=== PATIENT | female | born 1955 | race Hispanic/Latino ===

== ENCOUNTER 2020-07-21 08:17 | Inpatient (IN) | payer MEDICARE, OTHER ==
[2020-07-21] MEDS ORDERED: SODIUM CHLORIDE 0.9% 1000 ML 1,000 ML IV ONE (08:43)
[2020-07-21] MEDS ORDERED: ONDANSETRON 4 MG/2 ML INJ IV ONE (08:44)
[2020-07-21] MEDS ORDERED: MORPHINE 4 MG/1 ML INJ IV ONE (08:44)
--- NOTE | 2020-07-21 08:44 | Emergency Department Report ---
HPI - General Chief Complaint: Abdominal Pain Time Seen by Provider: 07/21/20 08:27 - HPI HPI: This is a 65-year-old female presents to the emergency department with periumbilical abdominal pain related to a hernia. Patient does have a history of this hernia and says that it has been going on intermittently for "a while", but usually she is able to push the hernia back in and has not been able to do so over the past few days. On Monday, 2 days ago, the patient went to [facility] and had a work-up including labs and a CT scan of the abdomen and pelvis with IV contrast. The results show that the patient has a ventral/umbilical hernia that contains both fat and bowel. Apparently they attempted to reduce the hernia unsuccessfully. However, a general surgeon was contacted at that time who said that she did not feel that the patient should be operated on for those findings and the patient was discharged home. Patient says "they thought there was poop in there" and that was the reason for her discomfort. Patient had a bowel movement on Monday but has not had one since. The hernia has been sticking out for the past few days unable to be placed back in. This morning the patient's pain increased and she began having some nausea and vomiting. She otherwise has a history of hypothyroidism, lupus, Sjogren's disease, high cholesterol. ED Past Medical Hx - Past Medical History Previous Medical History?: Yes Hx Hypertension: Yes Additional medical history: hypothyroidism, Lupus, Sjogrens, high cholesterol - Surgical History Additional Surgical History: right leg surgery due to fx - Social History Smoking Status: Never Smoker - Medications Home Medications: Home Medications Medication Instructions Recorded Confirmed Last Taken Type Citalopram [Celexa] 40 mg PO QDAY 08/26/13 07/21/20 08/26/13 07:00 History Hydroxychloroquine [Plaquenil] 200 mg PO BID 08/26/13 07/21/20 08/27/13 22:00 History Levothyroxine [Synthroid] 112 mcg PO QAM 08/26/13 07/21/20 08/26/13 07:00 H istory Lisinopril/Hydrochlorothiazide 2 tab PO QDAY 08/26/13 07/21/20 08/26/13 07:00 History [Zestoretic 20-12.5 mg] amLODIPine 5 mg PO DAILY 07/21/20 07/21/20 Unknown History predniSONE 2 mg PO DAILY 07/21/20 07/21/20 Unknown History ED Review of Systems ROS: Stated complaint: ABD PAIN Other details as noted in HPI Comment: All other systems reviewed and negative Constitutional: denies: chills, fever Eyes: denies: eye pain, vision change ENT: denies: ear pain, throat pain Respiratory: denies: cough, shortness of breath Cardiovascular: denies: chest pain, palpitations Gastrointestinal: abdominal pain, nausea, vomiting Genitourinary: denies: dysuria, discharge Musculoskeletal: denies: back pain, arthralgia Skin: denies: rash, lesions Neurological: denies: headache, weakness Physical Exam - Physical Exam Vital Signs: Vital Signs 07/21/20 08:21 Temperature 97.6 F Pulse Rate 109 H Respiratory 16 Rate Blood Pressure 107/76 O2 Sat by Pulse 98 Oximetry Physical Exam: GENERAL: The patient is well-developed well-nourished. HENT: Normocephalic. Atraumatic. Patient has moist mucous membranes. EYES: Extraocular motions are intact. NECK: Supple. Trachea is midline. CHEST/LUNGS: Clear to auscultation. There is no respiratory distress noted. HEART/CARDIOVASCULAR: Regular. There is no tachycardia. There is no murmur. ABDOMEN: Abdomen is soft. There is periumbilical abdominal pain with a palpable ventral hernia that is not reducible. SKIN: Skin is warm and dry. NEURO: The patient is awake, alert, and oriented. The patient is cooperative. The patient has no focal neurologic deficits. Normal speech. MUSCULOSKELETAL: There is no tenderness or deformity. There is no limitation range of motion. ED Course Vital Signs 07/21/20 08:21 Temperature 97.6 F Pulse Rate 109 H Respiratory 16 Rate Blood Pressure 107/76 O2 Sat by Pulse 98 Oximetry - Reevaluation(s) Reevaluation #1: 07/21/20 14:01 Lab Results 07/21/20 07/21/20 Range/Units 08:45 08:45 WBC 13.6 H (4.5-11.0) K/mm3 RBC 4.51 (3.65-5.03) M/mm3 Hgb 13.3 (10.1-14.3) gm/dl Hct 40.4 (30.3-42.9) % MCV 90 (79-97) fl MCH 30 (28-32) pg MCHC 33 (30-34) % RDW 15.0 (13.2-15.2) % Plt Count 302 (140-440) K/mm3 Add Manual Diff Complete Total Counted 100 Seg Neutrophils % Insulation Supervisor Seg Neuts % (Manual) 92.0 H (40.0-70.0) % Band Neutrophils % 1.0 % Lymphocytes % (Manual) 4.0 L (13.4-35.0) % Reactive Lymphs % (Man) 0 % Monocytes % (Manual) 3.0 (0.0-7.3) % Eosinophils % (Manual) 0 (0.0-4.3) % Basophils % (Manual) 0 (0.0-1.8) % Metamyelocytes % 0 % Myelocytes % 0 % Promyelocytes % 0 % Blast Cells % 0 % Nucleated RBC % Not Reportable Seg Neutrophils # Man 12.5 H (1.8-7.7) K/mm3 Band Neutrophils # 0.1 K/mm3 Lymphocytes # (Manual) 0.5 L (1.2-5.4) K/mm3 Abs React Lymphs (Man) 0.0 K/mm3 Monocytes # (Manual) 0.4 (0.0-0.8) K/mm3 Eosinophils # (Manual) 0.0 (0.0-0.4) K/mm3 Basophils # (Manual) 0.0 (0.0-0.1) K/mm3 Metamyelocytes # 0.0 K/mm3 Myelocytes # 0.0 K/mm3 Promyelocytes # 0.0 K/mm3 Blast Cells # 0.0 K/mm3 WBC Morphology Not Reportable Hypersegmented Neuts Not Reportable Hyposegmented Neuts Not Reportable Hypogranular Neuts Not Reportable Smudge Cells Not Reportable Toxic Granulation Not Reportable Toxic Vacuolation Not Reportable Dohle Bodies Not Reportable Pelger-Huet Anomaly Not Reportable Michelle Rods Not Reportable Platelet Estimate Consistent w auto Clumped Platelets Not Reportable Plt Clumps, EDTA Not Reportable Large Platelets Not Reportable Giant Platelets Not Reportable Platelet Satelliting Not Reportable Plt Morphology Comment Not Reportable RBC Morphology Normal Dimorphic RBCs Not Reportable Polychromasia Not Reportable Hypochromasia Not Reportable Poikilocytosis Not Reportable Anisocytosis Not Reportable Microcytosis Not Reportable Macrocytosis Not Reportable Spherocytes Not Reportable Pappenheimer Bodies Not Reportable Sickle Cells Not Reportable Target Cells Not Reportable Tear Drop Cells Not Reportable Ovalocytes Not Reportable Helmet Cells Not Reportable [place] Bodies Not Reportable [place] Rings Not Reportable [place] Cells Not Reportable Bite Cells Not Reportable Crenated Cell Not Reportable Elliptocytes Not Reportable Acanthocytes (Spur) Not Reportable Rouleaux Not Reportable Hemoglobin C Crystals Not Reportable Schistocytes Not Reportable Malaria parasites Not Reportable Curt Bodies Not Reportable Hem Pathologist Commnt No Sodium 128 L (137-145) mmol/L Potassium 4.3 (3.6-5.0) mmol/L Chloride 89.3 L (98-107) mmol/L Carbon Dioxide 18 L (22-30) mmol/L Anion Gap 25 mmol/L BUN 36 H (7-17) mg/dL Creatinine 1.9 H (0.6-1.2) mg/dL Estimated GFR 26 ml/min BUN/Creatinine Ratio 19 % Glucose 172 H (65-100) mg/dL Calcium 9.8 (8.4-10.2) mg/dL Total Bilirubin 0.70 (0.1-1.2) mg/dL Direct Bilirubin < 0.2 (0-0.2) mg/dL Indirect Bilirubin 0.5 mg/dL AST 24 (5-40) units/L ALT 15 (7-56) units/L Alkaline Phosphatase 79 (35-129) units/L Total Protein 7.3 (6.3-8.2) g/dL Albumin 4.1 (3.9-5) g/dL Albumin/Globulin Ratio 1.3 % Lipase 15 (13-60) units/L - Consultations Consultation #1: 07/21/20 10:56 I called and spoke with [employer], as the patient has [employer] listed as 1 of her insurances. However they say that her [employer] insurance lapsed at the end of January. General surgery has been paged for ventral hernia causing SBO. 07/21/20 11:20 I spoke with the general surgeon on-call, Dr. Mcneal, he was asked for a nasogastric tube to be placed. Patient will be admitted to the hospital service and he will consult. If he is unable to get the hernia reduced that he may take the patient to the operating room in the morning. ED Medical Decision Making - Lab Data Result diagrams: 07/21/20 08:45 07/21/20 08:45 - Radiology Data Radiology results: report reviewed CT ABDOMEN AND PELVIS WITHOUT CONTRAST HISTORY: Abdominal pain COMPARISON: None TECHNIQUE: Routine abdominal and pelvic CT exam performed Without intravenous contrast. Oral contrast was administered. Lack of intravenous contrast limits evaluation of the vascular and solid organs.. All CT scans at this location are performed using CT dose reduction for ALARA by means of automated exposure control. FINDINGS: CT ABDOMEN: Lung Bases: No significant abnormality. Liver: No significant abnormality. Biliary: No significant abnormality. Spleen: No significant abnormality. Unenlarged. Pancreas: No significant abnormality. Adrenals: No significant abnormality. Kidneys: No significant abnormality. Lymphatics: No lymphadenopathy. Vasculature: Atherosclerotic but nonaneurysmal abdominal aorta. Bowel/Peritoneum: There is a small bowel obstruction with transition point to nondistended bowel occurring and a umbilical hernia. There is a small amount of free fluid. Normal appendix. CT PELVIC: : No significant abnormality. Lymphatics: No lymphadenopathy. Osseous Structures: No aggressive appearing osseous lesions. Grade 1 degenerative anterolisthesis of L5 on S1 noted. Additional Findings: None IMPRESSION: 1. Small bowel obstruction with transition point occurring in a ventral hernia. - Medical Decision Making This patient presents with increased periumbilical abdominal pain, and now has developed nausea and vomiting. Patient has a firm ventral hernia that I was unable to reduce after giving her IV analgesia. Abdominal x-ray shows concern for a bowel obstruction. Patient's labs show a mild leukocytosis, but shows acute renal failure with a GFR of about 28. She has paperwork from a few days ago showing that she had normal kidney function at that time. A CT scan of the abdomen and pelvis without contrast was completed that shows a small bowel obstruction with a transition point at the ventral hernia. General surgery contacted and consulted. A nasogastric tube has been placed. The patient will be admitted to the hospitalist service. Critical Care Time: Yes Critical care time in (mins) excluding proc time.: 35 Critical care attestation.: If time is entered above; I have spent that time in minutes in the direct care of this critically ill patient, excluding procedure time. Critical care time was spent on this patient in doing her initial evaluation, multiple re- evaluations, ordering and interpretation of labs and imaging, discussion with the general surgeon, discussion with the patient. Critical Care Time: 35 minutes ED Disposition Clinical Impression: Small bowel obstruction, Ventral hernia with bowel obstruction Disposition: OP ADMIT IP TO THIS HOSP Is pt being admited?: Yes Condition: Serious Time of Disposition: 11:25
[2020-07-21 09:12] LABS: Hematocrit 40.4 % (30.3-42.9); Hemoglobin 13.3 gm/dl (10.1-14.3); Mean Corpuscular HGB Conc 33 % (30-34); Mean Corpuscular Volume 90 fl (79-97); Platelet Count 302 K/mm3 (140-440); Red Blood Count 4.51 M/mm3 (3.65-5.03)
--- NOTE | 2020-07-21 09:15 | XRay Report ---
ABDOMEN 2 VIEW(S) INDICATION / CLINICAL INFORMATION: Abd pain. COMPARISON: None available. FINDINGS: TUBES / LINES: None. BOWEL GAS PATTERN: There are multiple mildly dilated loops of small bowel with air-fluid levels in th e central abdomen. The colon is decompressed and contains normal stool. FREE AIR / EXTRALUMINAL GAS: None seen. ADDITIONAL FINDINGS: No significant additional findings. IMPRESSION: Findings consistent with partial small bowel obstruction. Signer Name: Tigre Guaman Jr, MD Signed: 07/21/2020 9:10 AM Workstation Name: [id number]
[2020-07-21 09:31] LABS: Alanine Aminotransferase 15 units/L (7-56); Albumin 4.1 g/dL (3.9-5); BUN/Creatinine Ratio 19; Blood Urea Nitrogen 36 mg/dL (7-17); Calcium 9.8 mg/dL (8.4-10.2); Hemolysis Index 3
[2020-07-21 09:43] LABS: Bilirubin,Direct < 0.2 mg/dL (0-0.2)
[2020-07-21 09:58] LABS: Band Neutrophils # (Manual) 0.1 K/mm3; Basophils % (Manual) 0 % (0.0-1.8); Eosinophils % (Manual) 0 % (0.0-4.3); Total Cells Counted 100
[2020-07-21 09:59] LABS: Platelet Estimate Consistent w Auto; RBC Morphology Normal
--- NOTE | 2020-07-21 10:47 | Cat Scan Report ---
CT ABDOMEN AND PELVIS WITHOUT CONTRAST HISTORY: Abdominal pain COMPARISON: None TECHNIQUE: Routine abdominal and pelvic CT exam performed Without intravenous contrast. Oral contrast was administered. Lack of intravenous contrast limits evaluation of the vascular and solid organs.. All CT scans at this location are performed using CT dose reduction for ALARA by means of automated exposure control. FINDINGS: CT ABDOMEN: Lung Bases: No significant abnormality. Liver: No significant abnormality. Biliary: No significant abnormality. Spleen: No significant abnormality. Unenlarged. Pancreas: No significant abnormality. Adrenals: No significant abnormality. Kidneys: No significant abnormality. Lymphatics: No lymphadenopathy. Vasculature: Atherosclerotic but nonaneurysmal abdominal aorta. Bowel/Peritoneum: There is a small bowel obstruction with transition point to nondistended bowel occu rring and a umbilical hernia. There is a small amount of free fluid. Normal appendix. CT PELVIC: : No significant abnormality. Lymphatics: No lymphadenopathy. Osseous Structures: No aggressive appearing osseous lesions. Grade 1 degenerative anterolisthesis of L5 on S1 noted. Additional Findings: None IMPRESSION: 1. Small bowel obstruction with transition point occurring in a ventral hernia. Signer Name: Tejas Ospina MD Signed: 07/21/2020 10:42 AM Workstation Name: [id number]
--- NOTE | 2020-07-21 11:47 | Consultation ---
History of Present Illness Consult date: 07/21/20 Reason for consult: abdominal pain Requesting physician: ODILIA DODSON Chief complaint: abdominal pain, N,V - History of present illness History of present illness: 65yo F with multiple medical problems presents with relatively recent onset of abdominal pain, swelling, nausea, vomiting for the past 2 to 3 days. Evaluation emergency department revealed a ventral hernia with small bowel obstruction. General surgery was consulted. Patient reports that she has had this hernia for possibly over 30 years. She was told that if it did not bother her that repair was not necessary. Over the years, she has been able to easily reduce it whenever it popped out. The last time she remembers reducing it was about 2 to 3 weeks ago. When the hernia came out and was nonreducible, she went to an outside hospital for evaluation. Supposedly, they saw the hernia and bowel obstruction, but felt that surgery was not necessary. As her symptoms did not improve, she presented to our ER for evaluation. She denies generalized abdominal pain. The pain is focused at the site of the hernia. Denies any other symptoms. Past History Past Medical History: hyperlipidemia, hypothyroidism, other (Lupus, Sjogrens) Past Surgical History: Other (right leg surgery for fx) Social history: denies: smoking, alcohol abuse Family history: no significant family history Medications and Allergies Allergies Allergy/AdvReac Type Severity Reaction Status Date / Time Sulfa (Sulfonamide Allergy Rash Verified 08/26/13 23:57 Antibiotics) Home Medications Medication Instructions Recorded Confirmed Last Taken Type Citalopram [Celexa] 40 mg PO QDAY 08/26/13 07/21/20 08/26/13 07:00 History Hydroxychloroquine [Plaquenil] 200 mg PO BID 08/26/13 07/21/20 08/27/13 22:00 History Levothyroxine [Synthroid] 112 mcg PO QAM 08/26/13 07/21/20 08/26/13 07:00 History Lisinopril/Hydrochlorothiazide 2 tab PO QDAY 08/26/13 07/21/20 08/26/13 07:00 History [Zestoretic 20-12.5 mg] amLODIPine 5 mg PO DAILY 07/21/20 07/21/20 Unknown History predniSONE 2 mg PO DAILY 07/21/20 07/21/20 Unknown History Review of Systems - Constitutional no fever, no chills, no chronic pain - Cardiovascular no chest pain, no shortness of breath - Respiratory no cough - Gastrointestinal abdominal pain, nausea, vomiting, change in bowel habits (last BM and flatus was 2 days ago) - Muskuloskeletal no low back pain - Integumentary no rash, no pruritis, no redness, no sores, no wounds Exam Vital Signs Temp Pulse Resp BP Pulse Ox 97.6 F 109 H 16 107/76 98 07/21/20 08:21 07/21/20 08:21 07/21/20 08:21 07/21/20 08:21 07/21/20 08:21 - General physical appearance Positive: no distress, no pain, other (very pleasant. Does not appear ill) - Eyes Positive: normal occular movement - Respiratory Positive: normal expansion, normal respiratory effort, clear to auscultation - Cardiovascular Rhythm: regular - Abdomen Abdomen: Present: soft, masses. Absent: tender, guarding, rigid, wound, surgical scars Hernia: umbilical, incarcerated - Integumentary no rash, no growths, no abnormal pigmentation - Neurologic Neurologic: alert and oriented to time, place and person, motor strength and sensation are grossly intact - Psychiatric Psychiatric: appropriate mood/affect, intact judgment & insight, cooperative Results - Labs 07/21/20 08:45 07/21/20 08:45 Abnormal lab results 07/21/20 07/21/20 Range/Units 08:45 08:45 WBC 13.6 H (4.5-11.0) K/mm3 Seg Neuts % (Manual) 92.0 H (40.0-70.0) % Lymphocytes % (Manual) 4.0 L (13.4-35.0) % Seg Neutrophils # Man 12.5 H (1.8-7.7) K/mm3 Lymphocytes # (Manual) 0.5 L (1.2-5.4) K/mm3 Sodium 128 L (137-145) mmol/L Chloride 89.3 L (98-107) mmol/L Carbon Dioxide 18 L (22-30) mmol/L BUN 36 H (7-17) mg/dL Creatinine 1.9 H (0.6-1.2) mg/dL Glucose 172 H (65-100) mg/dL Diabetes panel 07/21/20 Range/Units 08:45 Sodium 128 L (137-145) mmol/L Potassium 4.3 (3.6-5.0) mmol/L Chloride 89.3 L (98-107) mmol/L Carbon Dioxide 18 L (22-30) mmol/L BUN 36 H (7-17) mg/dL Creatinine 1.9 H (0.6-1.2) mg/dL Glucose 172 H (65-100) mg/dL Calcium 9.8 (8.4-10.2) mg/dL AST 24 (5-40) units/L ALT 15 (7-56) units/L Alkaline Phosphatase 79 (35-129) units/L Total Protein 7.3 (6.3-8.2) g/dL Albumin 4.1 (3.9-5) g/dL Calcium panel 07/21/20 Range/Units 08:45 Calcium 9.8 (8.4-10.2) mg/dL Albumin 4.1 (3.9-5) g/dL Pituitary panel 07/21/20 Range/Units 08:45 Sodium 128 L (137-145) mmol/L Potassium 4.3 (3.6-5.0) mmol/L Chloride 89.3 L (98-107) mmol/L Carbon Dioxide 18 L (22-30) mmol/L BUN 36 H (7-17) mg/dL Creatinine 1.9 H (0.6-1.2) mg/dL Glucose 172 H (65-100) mg/dL Calcium 9.8 (8.4-10.2) mg/dL Adrenal panel 07/21/20 Range/Units 08:45 Sodium 128 L (137-145) mmol/L Potassium 4.3 (3.6-5.0) mmol/L Chloride 89.3 L (98-107) mmol/L Carbon Dioxide 18 L (22-30) mmol/L BUN 36 H (7-17) mg/dL Creatinine 1.9 H (0.6-1.2) mg/dL Glucose 172 H (65-100) mg/dL Calcium 9.8 (8.4-10.2) mg/dL Total Bilirubin 0.70 (0.1-1.2) mg/dL AST 24 (5-40) units/L ALT 15 (7-56) units/L Alkaline Phosphatase 79 (35-129) units/L Total Protein 7.3 (6.3-8.2) g/dL Albumin 4.1 (3.9-5) g/dL - Imaging CT scan - abdomen: report reviewed, image reviewed CT scan - pelvis: report reviewed, image reviewed Assessment and Plan - Patient Problems (1) Ventral hernia with bowel obstruction Current Visit: Yes Status: Acute Plan to address problem: Pt stable. Patient with an incarcerated ventral hernia but no signs of bowel compromise. As we do not have an emergent situation, would like for hyponatremia and acute kidney injury to be addressed before surgery. Tentatively, she is on the schedule for for a diagnostic laparoscopy. Until then, would recommend NG tube decompression to relieve some pressure on the intestinal system. Procedure, risk, benefits were discussed. All questions were answered. Consent was obtained. We did discuss that she is at high risk for complications and hernia recurrence due to her chronic medical issues and medications such as the Plaquenil and steroids. She acknowledged understanding. We will follow along. Please call with any questions. Time=30min
[2020-07-21] MEDS: MORPHINE 4 MG/1 ML INJ IV PRN ×2 (14:56→21:38)
[2020-07-21 15:41] LABS: Bacteria,Urine 2+ /HPF (Negative); Bilirubin,Urine NEG (Negative); Blood,Urine NEG (Negative); Color,Urine Amber (Yellow); Hyaline Casts,Urine 6 /LPF; Mucus,Urine 1+ /HPF; Urobilinogen,Urine < 2.0 mg/dL (<2.0)
--- NOTE | 2020-07-21 22:45 | History and Physical Report ---
History of Present Illness Date of examination: 07/21/20 Date of admission: 07/21/20 11:25 Chief complaint: Severe abdominal pain and vomiting for 1 day. History of present illness: 65-year-old female comes to the emergency department for abdominal pain especially in the periumbilical region. Patient has history of ventral hernia. Patient has been having abdominal pain intermittently. Patient had work-up at [facility] included labs and CAT scan of the abdomen which showed ventral/umbilical hernia that contains both fat and bowel loops. They try to reduce the hernia unsuccessfully. Patient was discharged after conservative treatment and to follow-up as outpatient with surgeon. Patient comes in for vomiting. And severe pain. No diarrhea. No fever or chills. - Past Medical History Previous Medical History?: Yes Hx Hypertension: Yes Additional medical history: hypothyroidism, Lupus, Sjogrens, high cholesterol - Surgical History Additional Surgical History: right leg surgery due to fx Family history Hypertension - Social History Smoking Status: Never Smoker - Medications Home Medications: Home Medications Medication Instructions Recorded Confirmed Last Taken Type Citalopram [Celexa] 40 mg PO QDAY 08/26/13 07/21/20 08/26/13 07:00 History Hydroxychloroquine [Plaquenil] 200 mg PO BID 08/26/13 07/21/20 08/27/13 22:00 History Levothyroxine [Synthroid] 112 mcg PO QAM 08/26/13 07/21/20 08/26/13 07:00 History Lisinopril/Hydrochlorothiazide 2 tab PO QDAY 08/26/13 07/21/20 08/26/13 07:00 History [Zestoretic 20-12.5 mg] amLODIPine 5 mg PO DAILY 07/21/20 07/21/20 Unknown History predniSONE 2 mg PO DAILY 07/21/20 07/21/20 Unknown History Review of Systems ROS: Stated complaint: ABD PAIN Other details as noted in HPI Comment: All other systems reviewed and negative Constitutional: denies: chills, fever Eyes: denies: eye pain, vision change ENT: denies: ear pain, throat pain Respiratory: denies: cough, shortness of breath Cardiovascular: denies: chest pain, palpitations Gastrointestinal: abdominal pain, nausea, vomiting Genitourinary: denies: dysuria, discharge Musculoskeletal: denies: back pain, arthralgia Skin: denies: rash, lesions Neurological: denies: headache, weakness Past History Past Medical History: hyperlipidemia, hypothyroidism, other (Lupus, Sjogrens) Past Surgical History: Other (right leg surgery for fx) Social history: denies: smoking, alcohol abuse Family history: no significant family history Medications and Allergies Allergies Allergy/AdvReac Type Severity Reaction Status Date / Time Sulfa (Sulfonamide Allergy Rash Verified 08/26/13 23:57 Antibiotics) Home Medications Medication Instructions Recorded Confirmed Last Taken Type Citalopram [Celexa] 40 mg PO QDAY 08/26/13 07/21/20 08/26/13 07:00 History Hydroxychloroquine [Plaquenil] 200 mg PO BID 08/26/13 07/21/20 08/27/13 22:00 History Levothyroxine [Synthroid] 112 mcg PO QAM 08/26/13 07/21/20 08/26/13 07:00 H istory Lisinopril/Hydrochlorothiazide 2 tab PO QDAY 08/26/13 07/21/20 08/26/13 07:00 History [Zestoretic 20-12.5 mg] amLODIPine 5 mg PO DAILY 07/21/20 07/21/20 Unknown History predniSONE 2 mg PO DAILY 07/21/20 07/21/20 Unknown History Active Meds: Active Medications Cefazolin Sodium (Ancef/Sterile Water 2 Gm/20 Ml) 2 gm in 20 mls @ 80 mls/hr IV PREOP NR Stop: 07/23/20 23:00 Morphine Sulfate (Morphine) 4 mg IV Q3H PRN PRN Reason: Pain , Severe (7-10) Last Admin: 07/21/20 21:38 Dose: 4 mg Documented by: Exam - Constitutional Vitals: Temp Pulse Resp BP Pulse Ox 98.5 F 94 H 19 108/65 96 07/21/20 15:07 07/21/20 15:07 07/21/20 15:07 07/21/20 15:07 07/21/20 15:07 General appearance: Present: no acute distress, well-nourished - EENT Eyes: Present: PERRL ENT: hearing intact, clear oral mucosa - Neck Neck: Present: supple, normal ROM - Respiratory Respiratory effort: normal Respiratory: bilateral: CTA - Cardiovascular Rhythm: regular (78) Heart Sounds: Present: S1 & S2. Absent: rub, click - Extremities Extremities: pulses symmetrical, No edema Peripheral Pulses: within normal limits - Abdominal General gastrointestinal: Present: soft, tender, distended, normal bowel sounds, hypoactive bowel sounds, hernia (Ventral hernia) Female genitourinary: Present: normal - Integumentary Integumentary: Present: clear, warm, dry - Musculoskeletal Musculoskeletal: gait normal, strength equal bilaterally - Psychiatric Psychiatric: appropriate mood/affect, intact judgment & insight - Neurologic Neurologic: CNII-XII intact, moves all extremities Results - Labs CBC & Chem 7: 07/22/20 04:40 07/22/20 04:40 Labs: Laboratory Last Values WBC 13.6 K/mm3 (4.5-11.0) H 07/21/20 08:45 RBC 4.51 M/mm3 (3.65-5.03) 07/21/20 08:45 Hgb 13.3 gm/dl (10.1-14.3) 07/21/20 08:45 Hct 40.4 % (30.3-42.9) 07/21/20 08:45 MCV 90 fl (79-97) 07/21/20 08:45 MCH 30 pg (28-32) 07/21/20 08:45 MCHC 33 % (30-34) 07/21/20 08:45 RDW 15.0 % (13.2-15.2) 07/21/20 08:45 Plt Count 302 K/mm3 (140-440) 07/21/20 08:45 Add Manual Diff Complete 07/21/20 08:45 Total Counted 100 07/21/20 08:45 Seg Neutrophils % Maintenance Chief 07/21/20 08:45 Seg Neuts % (Manual) 92.0 % (40.0-70.0) H 07/21/20 08:45 Band Neutrophils % 1.0 % 07/21/20 08:45 Lymphocytes % (Manual) 4.0 % (13.4-35.0) L 07/21/20 08:45 Reactive Lymphs % (Man) 0 % 07/21/20 08:45 Monocytes % (Manual) 3.0 % (0.0-7.3) 07/21/20 08:45 Eosinophils % (Manual) 0 % (0.0-4.3) 07/21/20 08:45 Basophils % (Manual) 0 % (0.0-1.8) 07/21/20 08:45 Metamyelocytes % 0 % 07/21/20 08:45 Myelocytes % 0 % 07/21/20 08:45 Promyelocytes % 0 % 07/21/20 08:45 Blast Cells % 0 % 07/21/20 08:45 Nucleated RBC % Not Reportable 07/21/20 08:45 Seg Neutrophils # Man 12.5 K/mm3 (1.8-7.7) H 07/21/20 08:45 Band Neutrophils # 0.1 K/mm3 07/21/20 08:45 Lymphocytes # (Manual) 0.5 K/mm3 (1.2-5.4) L 07/21/20 08:45 Abs React Lymphs (Man) 0.0 K/mm3 07/21/20 08:45 Monocytes # (Manual) 0.4 K/mm3 (0.0-0.8) 07/21/20 08:45 Eosinophils # (Manual) 0.0 K/mm3 (0.0-0.4) 07/21/20 08:45 Basophils # (Manual) 0.0 K/mm3 (0.0-0.1) 07/21/20 08:45 Metamyelocytes # 0.0 K/mm3 07/21/20 08:45 Myelocytes # 0.0 K/mm3 07/21/20 08:45 Promyelocytes # 0.0 K/mm3 07/21/20 08:45 Blast Cells # 0.0 K/mm3 07/21/20 08:45 WBC Morphology Not Reportable 07/21/20 08:45 Hypersegmented Neuts Not Reportable 07/21/20 08:45 Hyposegmented Neuts Not Reportable 07/21/20 08:45 Hypogranular Neuts Not Reportable 07/21/20 08:45 Smudge Cells Not Reportable 07/21/20 08:45 Toxic Granulation Not Reportable 07/21/20 08:45 Toxic Vacuolation Not Reportable 07/21/20 08:45 Dohle Bodies Not Reportable 07/21/20 08:45 Pelger-Huet Anomaly Not Reportable 07/21/20 08:45 Michelle Rods Not Reportable 07/21/20 08:45 Platelet Estimate Consistent w auto 07/21/20 08:45 Clumped Platelets Not Reportable 07/21/20 08:45 Plt Clumps, EDTA Not Reportable 07/21/20 08:45 Large Platelets Not Reportable 07/21/20 08:45 Giant Platelets Not Reportable 07/21/20 08:45 Platelet Satelliting Not Reportable 07/21/20 08:45 Plt Morphology Comment Not Reportable 07/21/20 08:45 RBC Morphology Normal 07/21/20 08:45 Dimorphic RBCs Not Reportable 07/21/20 08:45 Polychromasia Not Reportable 07/21/20 08:45 Hypochromasia Not Reportable 07/21/20 08:45 Poikilocytosis Not Reportable 07/21/20 08:45 Anisocytosis Not Reportable 07/21/20 08:45 Microcytosis Not Reportable 07/21/20 08:45 Macrocytosis Not Reportable 07/21/20 08:45 Spherocytes Not Reportable 07/21/20 08:45 Pappenheimer Bodies Not Reportable 07/21/20 08:45 Sickle Cells Not Reportable 07/21/20 08:45 Target Cells Not Reportable 07/21/20 08:45 Tear Drop Cells Not Reportable 07/21/20 08:45 Ovalocytes Not Reportable 07/21/20 08:45 Helmet Cells Not Reportable 07/21/20 08:45 Ching-Prosper Bodies Not Reportable 07/21/20 08:45 [place] Rings Not Reportable 07/21/20 08:45 Haylee Cells Not Reportable 07/21/20 08:45 Bite Cells Not Reportable 07/21/20 08:45 Crenated Cell Not Reportable 07/21/20 08:45 Elliptocytes Not Reportable 07/21/20 08:45 Acanthocytes (Spur) Not Reportable 07/21/20 08:45 Rouleaux Not Reportable 07/21/20 08:45 Hemoglobin C Crystals Not Reportable 07/21/20 08:45 Schistocytes Not Reportable 07/21/20 08:45 Malaria parasites Not Reportable 07/21/20 08:45 Curt Bodies Not Reportable 07/21/20 08:45 Hem Pathologist Commnt No 07/21/20 08:45 Sodium 128 mmol/L (137-145) L 07/21/20 08:45 Potassium 4.3 mmol/L (3.6-5.0) 07/21/20 08:45 Chloride 89.3 mmol/L (98-107) L 07/21/20 08:45 Carbon Dioxide 18 mmol/L (22-30) L 07/21/20 08:45 Anion Gap 25 mmol/L 07/21/20 08:45 BUN 36 mg/dL (7-17) H 07/21/20 08:45 Creatinine 1.9 mg/dL (0.6-1.2) H 07/21/20 08:45 Estimated GFR 26 ml/min 07/21/20 08:45 BUN/Creatinine Ratio 19 % 07/21/20 08:45 Glucose 172 mg/dL (65-100) H 07/21/20 08:45 Calcium 9.8 mg/dL (8.4-10.2) 07/21/20 08:45 Total Bilirubin 0.70 mg/dL (0.1-1.2) 07/21/20 08:45 Direct Bilirubin < 0.2 mg/dL (0-0.2) 07/21/20 08:45 Indirect Bilirubin 0.5 mg/dL 07/21/20 08:45 AST 24 units/L (5-40) 07/21/20 08:45 ALT 15 units/L (7-56) 07/21/20 08:45 Alkaline Phosphatase 79 units/L (35-129) 07/21/20 08:45 Total Protein 7.3 g/dL (6.3-8.2) 07/21/20 08:45 Albumin 4.1 g/dL (3.9-5) 07/21/20 08:45 Albumin/Globulin Ratio 1.3 % 07/21/20 08:45 Lipase 15 units/L (13-60) 07/21/20 08:45 Urine Color [place] (Yellow) 07/21/20 Unknown Urine Turbidity Cloudy (Clear) 07/21/20 Unknown Urine pH 5.0 (5.0-7.0) 07/21/20 Unknown Ur Specific [place] 1.020 (1.003-1.030) 07/21/20 Unknown Urine Protein 30 mg/dl mg/dL (Negative) 07/21/20 Unknown Urine Glucose (UA) Neg mg/dL (Negative) 07/21/20 Unknown Urine Ketones Neg mg/dL (Negative) 07/21/20 Unknown Urine Blood Neg (Negative) 07/21/20 Unknown Urine Nitrite Neg (Negative) 07/21/20 Unknown Urine Bilirubin Neg (Negative) 07/21/20 Unknown Urine Urobilinogen < 2.0 mg/dL (<2.0) 07/21/20 Unknown Ur Leukocyte Esterase Lg (Negative) 07/21/20 Unknown Urine WBC (Auto) 10.0 /HPF (0.0-6.0) H 07/21/20 Unknown Urine RBC (Auto) 4.0 /HPF (0.0-6.0) 07/21/20 Unknown U Epithel Cells (Auto) 5.0 /HPF (0-13.0) 07/21/20 Unknown Urine Bacteria (Auto) 2+ /HPF (Negative) 07/21/20 Unknown Hyaline Casts 6 /LPF 07/21/20 Unknown Urine Mucus 1+ /HPF 07/21/20 Unknown - Imaging and Cardiology CT scan - abdomen: report reviewed Imaging and Cardiology: CT abdomen IMPRESSION: 1. Small bowel obstruction with transition point occurring in a ventral hernia. Abdominal x-ray SBO Saldaña/IV: IV Catheter Type [Left INT / Saline Lock Antecubital] Assessment and Plan Advance Directives: Yes - Patient Problems (1) Small bowel obstruction Current Visit: Yes Status: Acute Plan to address problem: Secondary to ventral hernia NG tube to suction now IV Reglan and IV Zofran as needed IV fluids (2) Ventral hernia with bowel obstruction Current Visit: Yes Status: Acute Plan to address problem: Surgery consulted for possible correction of ventral hernia (3) MARCELO (acute kidney injury) Current Visit: Yes Status: Acute Plan to address problem: IV fluids for now and recheck BUN and creatinine Possible vasomotor nephropathy (4) Hypothyroidism (acquired) Current Visit: Yes Status: Chronic Plan to address problem: IV Synthroid for now (5) Hypertension Current Visit: Yes Status: Chronic Qualifiers: Hypertension type: essential hypertension Qualified Code(s): I10 - Esse ntial (primary) hypertension Plan to address problem: Catapres patch for now (6) Lupus (systemic lupus erythematosus) Current Visit: Yes Status: Chronic Qualifiers: Systemic lupus erythematosus type: unspecified Plan to address problem: Continue IV Decadron once a day in the place of prednisone Resume prednisone when she is taking medications orally (7) DVT prophylaxis Current Visit: Yes Status: Acute Plan to address problem: On heparin and GI prophylaxis
[2020-07-21] MEDS ORDERED: ONDANSETRON 4 MG/2 ML INJ IV PRN (22:46)
[2020-07-21] MEDS ORDERED: ACETAMINOPHEN 325 MG TAB PO PRN (22:46)
[2020-07-21] MEDS: FAMOTIDINE 20 MG/2 ML INJ IV SCH (23:51)
[2020-07-21] MEDS: D5W/0.9% NACL 1,000 ML IV SCH (23:52)
[2020-07-22 05:27] LABS: Albumin 3.7 g/dL (3.9-5); Calcium 8.8 mg/dL (8.4-10.2)
[2020-07-22 05:29] LABS: Basophils % (Auto) 0.1 % (0.0-1.8); Eosinophils # (Auto) 0.1 K/mm3 (0.0-0.4); Eosinophils % (Auto) 1.5 % (0.0-4.3); Hematocrit 32.8 % (30.3-42.9); Lymphocytes # (Auto) 0.4 K/mm3 (1.2-5.4); Lymphocytes % (Auto) 7.5 % (13.4-35.0); Mean Corpuscular HGB Conc 33 % (30-34); Mean Corpuscular Volume 90 fl (79-97); Monocytes # (Auto) 0.4 K/mm3 (0.0-0.8); Monocytes % (Auto) 8.1 % (0.0-7.3); Platelet Count 203 K/mm3 (140-440); Red Blood Count 3.64 M/mm3 (3.65-5.03); Red Cell Distribution Width 14.7 % (13.2-15.2)
--- NOTE | 2020-07-22 08:31 | Progress Note ---
Assessment and Plan - Patient Problems (1) Ventral hernia with bowel obstruction Current Visit: Yes Status: Acute Plan to address problem: Pt stable. Hernia remains incarcerated, but patient is feeling better. Scheduled for surgery tomorrow. Please call with questions. Time=10min Subjective Date of service: 07/22/20 Patient Reports: Positive: no new complaints, feels better, no flatus Objective - General physical appearance no distress, no pain, other (looks well) - Respiratory normal expansion, normal respiratory effort - Abdomen soft, not tender, not guarding, not rigid Hernia: umbilical, incarcerated - Integumentary other (mild reddish discoloration over umbilical area) - Psychiatric oriented to time, oriented to person, oriented to place, speech is normal, memory intact - Labs 07/22/20 04:40 07/22/20 04:40 Diabetes panel 07/21/20 07/22/20 Range/Units 08:45 04:40 Sodium 128 L 136 L D (137-145) mmol/L Potassium 4.3 4.9 (3.6-5.0) mmol/L Chloride 89.3 L 98.7 (98-107) mmol/L Carbon Dioxide 18 L 22 (22-30) mmol/L BUN 36 H 44 H (7-17) mg/dL Creatinine 1.9 H 1.7 H (0.6-1.2) mg/dL Glucose 172 H 118 H (65-100) mg/dL Calcium 9.8 8.8 (8.4-10.2) mg/dL AST 24 24 (5-40) units/L ALT 15 17 (7-56) units/L Alkaline Phosphatase 79 62 (35-129) units/L Total Protein 7.3 6.0 L (6.3-8.2) g/dL Albumin 4.1 3.7 L (3.9-5) g/dL Calcium panel 07/21/20 07/22/20 Range/Units 08:45 04:40 Calcium 9.8 8.8 (8.4-10.2) mg/dL Albumin 4.1 3.7 L (3.9-5) g/dL Pituitary panel 07/21/20 07/22/20 Range/Units 08:45 04:40 Sodium 128 L 136 L D (137-145) mmol/L Potassium 4.3 4.9 (3.6-5.0) mmol/L Chloride 89.3 L 98.7 (98-107) mmol/L Carbon Dioxide 18 L 22 (22-30) mmol/L BUN 36 H 44 H (7-17) mg/dL Creatinine 1.9 H 1.7 H (0.6-1.2) mg/dL Glucose 172 H 118 H (65-100) mg/dL Calcium 9.8 8.8 (8.4-10.2) mg/dL Adrenal panel 07/21/20 07/22/20 Range/Units 08:45 04:40 Sodium 128 L 136 L D (137-145) mmol/L Potassium 4.3 4.9 (3.6-5.0) mmol/L Chloride 89.3 L 98.7 (98-107) mmol/L Carbon Dioxide 18 L 22 (22-30) mmol/L BUN 36 H 44 H (7-17) mg/dL Creatinine 1.9 H 1.7 H (0.6-1.2) mg/dL Glucose 172 H 118 H (65-100) mg/dL Calcium 9.8 8.8 (8.4-10.2) mg/dL Total Bilirubin 0.70 0.50 (0.1-1.2) mg/dL AST 24 24 (5-40) units/L ALT 15 17 (7-56) units/L Alkaline Phosphatase 79 62 (35-129) units/L Total Protein 7.3 6.0 L (6.3-8.2) g/dL Albumin 4.1 3.7 L (3.9-5) g/dL
[2020-07-22] MEDS ORDERED: cloNIDine TTS 0.1 MG/24 HR PATCH TD SCH (10:00)
[2020-07-22] MEDS: LEVOTHYROXINE 100 MCG INJ IV SCH (11:04)
[2020-07-22] MEDS: FAMOTIDINE 20 MG/2 ML INJ IV SCH (11:05)
[2020-07-22] MEDS: dexAMETHasone 4 MG/ML VIAL IV SCH (11:05)
[2020-07-22] MEDS: cefTRIAXone/NS 1 GM/50 ML 1 GM/50 ML BAG IV SCH (12:13)
--- NOTE | 2020-07-22 13:49 | Progress Note ---
Assessment and Plan --Small bowel obstruction Secondary to incarcerated ventral hernia NG tube to suction now IV Reglan and IV Zofran as needed IV fluids, general surgery consulted --Incarcerated ventral hernia with bowel obstruction Surgery consulted for possible correction of ventral hernia Plan for surgery tomorrow -- MARCELO (acute kidney injury) IV fluids for now and recheck BUN and creatinine Possible vasomotor nephropathy -- Hypothyroidism (acquired) IV Synthroid for now -- Hypertension Catapres patch for now, continue to monitor BP -- Lupus (systemic lupus erythematosus) Continue IV Decadron once a day in the place of prednisone Resume prednisone when she is taking medications orally --UTI, cont rocephin iv -- DVT prophylaxis On heparin and GI prophylaxis Brief History: 65yo F with hyperlipidemia, hypothyroidism, other (Lupus, Sjogrens), ventral hernia for 30 years presents with relatively recent onset of abdominal pain, swelling, nausea, vomiting for the past 2 to 3 days. Evaluation emergency department revealed a ventral hernia with small bowel obstruction. General surgery was consulted. 07/22: cont iv fluid, iv abx, pain Mx as needed. NPO with NG suction.plan for surgery tomorrow. Subjective Date of service: 07/22/20 Interval history: Patient seen and examined. Medical records and medication list reviewed. No acute event overnight noted by the RN. Patient denies any chest pain or difficulty breathing. Patient is currently n.p.o. and on NG suction Complains of ventral abdominal pain but improved with IV pain meds Denies any vomiting Discussed plan of care at bedside with patient. Objective - Exam Narrative Exam: - General physical appearance Positive: no distress, no pain, other (very pleasant. Does not appear ill) - Eyes Positive: normal occular movement - Respiratory Positive: normal expansion, normal respiratory effort, clear to auscultation - Cardiovascular Rhythm: regular - Abdomen Abdomen: Present: soft, masses. Absent: tender, guarding, rigid, wound, surgical scars Hernia: umbilical, incarcerated - Integumentary no rash, no growths, no abnormal pigmentation - Neurologic Neurologic: alert and oriented to time, place and person, motor strength and sensation are grossly intact - Psychiatric Psychiatric: appropriate mood/affect, intact judgment & insight, cooperative - Constitutional Vitals: Vital Signs - 12hr 07/22/20 08:00 Temperature 99.2 F Pulse Rate 82 Respiratory 19 Rate Blood Pressure 133/65 [Left] O2 Sat by Pulse 98 Oximetry - Labs CBC & Chem 7: 07/22/20 04:40 07/22/20 04:40 Labs: Abnormal lab results 07/21/20 07/22/20 07/22/20 Range/Units Unknown 04:40 04:40 RBC 3.64 L (3.65-5.03) M/mm3 Lymph % (Auto) 7.5 L (13.4-35.0) % [place] % (Auto) 8.1 H (0.0-7.3) % Lymph # 0.4 L (1.2-5.4) K/mm3 Seg Neutrophils % 82.8 H (40.0-70.0) % Sodium 136 L D (137-145) mmol/L BUN 44 H (7-17) mg/dL Creatinine 1.7 H (0.6-1.2) mg/dL Glucose 118 H (65-100) mg/dL Total Protein 6.0 L (6.3-8.2) g/dL Albumin 3.7 L (3.9-5) g/dL Urine WBC (Auto) 10.0 H (0.0-6.0) /HPF
[2020-07-22] MEDS: MORPHINE 4 MG/1 ML INJ IV PRN (14:02)
[2020-07-22] MEDS: INSULIN REGULAR, HUMAN 100 UNIT/ML 3ML VIAL SUB-Q SCH ×2 (14:03→22:00)
[2020-07-22] MEDS: HEPARIN 5,000 UNIT/1 ML VIAL SUB-Q SCH (22:07)
[2020-07-22] MEDS: D5W/0.9% NACL 1,000 ML IV SCH (23:52)
[2020-07-23] MEDS: INSULIN REGULAR, HUMAN 100 UNIT/ML 3ML VIAL SUB-Q SCH ×3 (06:00→23:14)
[2020-07-23] MEDS ORDERED: ceFAZolin/Water 2 GM/20 ML 2 GM/20 ML SYRINGE IV NR (06:00)
[2020-07-23] MEDS: LEVOTHYROXINE 100 MCG INJ IV SCH ×2 (06:35→10:34)
[2020-07-23 07:56] LABS: Calcium 8.7 mg/dL (8.4-10.2)
[2020-07-23] MEDS: D5W/0.9% NACL 1,000 ML IV SCH (08:53)
[2020-07-23] MEDS ORDERED: ONDANSETRON 4 MG/2 ML INJ IV PRN (10:22)
[2020-07-23] MEDS ORDERED: HYDROmorphone 1 MG/1 ML INJ IV PRN ×2 (10:22)
--- NOTE | 2020-07-23 10:23 | Anesthesia Day of Surgery ---
Anesthesia Day of Surgery - Day of Surgery Patient Examined: Yes Patient H&P Reviewed: Yes Patient is NPO: Yes
--- NOTE | 2020-07-23 10:26 | Anesthesia Consultation ---
Anesthesia Consult and Med Hx Date of service: 07/23/20 - Airway Anesthetic Teeth Evaluation: Caps ROM Head & Neck: Adequate Mental/Hyoid Distance: Adequate Mallampati Class: Class III Intubation Access Assessment: Probably Good - Pre-Operative Health Status ASA Pre-Surgery Classification: ASA2 Proposed Anesthetic Plan: General - Pulmonary Hx Asthma: No (+2FS) - Cardiovascular System Hx Hypertension: Yes - Central Nervous System Hx Neuromuscular Disorder: Yes (Sjogren's; Arthritis) - Endocrine Hx Renal Disease: Yes (MARCELO; UTI) Hx Hypothyroidism: Yes
[2020-07-23] MEDS: SODIUM CHLORIDE 0.9% 1000 ML 1,000 ML IV SCH ×2 (10:30→18:11)
[2020-07-23] MEDS: FAMOTIDINE 20 MG/2 ML INJ IV SCH (10:31)
[2020-07-23] MEDS ORDERED: ePHEDrine SULFATE 50 MG/1 ML INJ ONE (10:33)
[2020-07-23] MEDS ORDERED: LIDOCAINE (1%) 10 MG/1 ML VIAL 20 ML MDV ONE (10:36)
[2020-07-23] MEDS ORDERED: BUPIVACAINE-EPINEPHRINE/PF 0.5%-1:200,000 (30 ML) VIAL INFILTRATI ONE ×2 (10:36→11:20)
[2020-07-23] MEDS ORDERED: GLYCOPYRROLATE 0.4 MG/2 ML INJ ONE (10:41)
[2020-07-23] MEDS ORDERED: dexAMETHasone 20 MG/5 ML VIAL ONE (10:41)
[2020-07-23] MEDS ORDERED: PHENYLEPHRINE/NS 1,000 MCG/10 ML SYRINGE (OR USE) IV ONE (10:41)
[2020-07-23] MEDS ORDERED: propofoL 200 MG/20 ML VIAL IV ONE (10:41)
[2020-07-23] MEDS ORDERED: SUCCINYLCHOLINE CHLORIDE 200 MG/10 ML INJ MDV ONE (10:41)
[2020-07-23] MEDS ORDERED: ONDANSETRON 4 MG/2 ML INJ ONE (10:41)
[2020-07-23] MEDS ORDERED: NEOSTIGMINE 10MG/10 ML INJ MDV ONE (10:41)
[2020-07-23] MEDS ORDERED: ROCURONIUM 50 MG/5 ML INJ IV ONE (10:41)
[2020-07-23] MEDS ORDERED: LIDOCAINE MPF (2%) 20 MG/1 ML VIAL 5 ML ONE (10:41)
[2020-07-23] MEDS ORDERED: fentaNYL 100 MCG/2 ML INJ ONE ×2 (10:41→13:27)
[2020-07-23] MEDS ORDERED: METOCLOPRAMIDE 10 MG/2 ML INJ ONE (10:45)
[2020-07-23] MEDS ORDERED: HYDROmorphone 1 MG/1 ML INJ ONE ×2 (11:09→11:12)
[2020-07-23] MEDS ORDERED: LIDOCAINE (1%) 10 MG/1 ML VIAL 20 ML MDV INFILTRATI ONE (11:20)
[2020-07-23] MEDS ORDERED: WATER FOR IRRIG STERILE 1,000 ML BOTTLE IR ONE (11:48)
--- NOTE | 2020-07-23 13:27 | Progress Note ---
Assessment and Plan Assessment and plan: Scheduled for hernia repair today per surgery --Small bowel obstruction Secondary to incarcerated ventral hernia NG tube to suction now IV Reglan and IV Zofran as needed IV fluids, general surgery consulted --Incarcerated ventral hernia with bowel obstruction Surgery consulted for possible correction of ventral hernia Plan for surgery tomorrow -- MARCELO (acute kidney injury) IV fluids for now and recheck BUN and creatinine Possible vasomotor nephropathy -- Hypothyroidism (acquired) IV Synthroid for now -- Hypertension Catapres patch for now, continue to monitor BP -- Lupus (systemic lupus erythematosus) Continue IV Decadron once a day in the place of prednisone Resume prednisone when she is taking medications orally --UTI, cont rocephin iv -- DVT prophylaxis On heparin and GI prophylaxis Brief History: 65yo F with hyperlipidemia, hypothyroidism, other (Lupus, Sjogrens), ventral hernia for 30 years presents with relatively recent onset of abdominal pain, swelling, nausea, vomiting for the past 2 to 3 days. Evaluation emergency department revealed a ventral hernia with small bowel obstruction. General surgery was consulted. 07/22: cont iv fluid, iv abx, pain Mx as needed. NPO with NG suction.plan for surgery tomorrow. 07/23; patient is scheduled for hernia repair today History Interval history: Patient was scheduled for surgical procedure Vital signs reviewed Hospitalist Physical - Physical exam Narrative exam: Patient in OR for surgery - Constitutional Vitals: Temp Pulse Resp BP Pulse Ox 98. F 6 L 22 131/70 98 07/23/20 10:15 07/23/20 10:15 07/23/20 10:15 07/23/20 10:15 07/23/20 10:15 General appearance: Present: no acute distress, well-nourished Results - Labs CBC & Chem 7: 07/22/20 04:40 07/23/20 06:42 Labs: Laboratory Last Values WBC 5.5 K/mm3 (4.5-11.0) 07/22/20 04:40 RBC 3.64 M/mm3 (3.65-5.03) L 07/22/20 04:40 Hgb 11.0 gm/dl (10.1-14.3) 07/22/20 04:40 Hct 32.8 % (30.3-42.9) D 07/22/20 04:40 MCV 90 fl (79-97) 07/22/20 04:40 MCH 30 pg (28-32) 07/22/20 04:40 MCHC 33 % (30-34) 07/22/20 04:40 RDW 14.7 % (13.2-15.2) 07/22/20 04:40 Plt Count 203 K/mm3 (140-440) 07/22/20 04:40 Lymph % (Auto) 7.5 % (13.4-35.0) L 07/22/20 04:40 Twiggs % (Auto) 8.1 % (0.0-7.3) H 07/22/20 04:40 Eos % (Auto) 1.5 % (0.0-4.3) 07/22/20 04:40 Baso % (Auto) 0.1 % (0.0-1.8) 07/22/20 04:40 Lymph # 0.4 K/mm3 (1.2-5.4) L 07/22/20 04:40 Twiggs # 0.4 K/mm3 (0.0-0.8) 07/22/20 04:40 Eos # 0.1 K/mm3 (0.0-0.4) 07/22/20 04:40 Baso # 0.0 K/mm3 (0.0-0.1) 07/22/20 04:40 Add Manual Diff Complete 07/21/20 08:45 Total Counted 100 07/21/20 08:45 Seg Neutrophils % 82.8 % (40.0-70.0) H 07/22/20 04:40 Seg Neuts % (Manual) 92.0 % (40.0-70.0) H 07/21/20 08:45 Band Neutrophils % 1.0 % 07/21/20 08:45 Lymphocytes % (Manual) 4.0 % (13.4-35.0) L 07/21/20 08:45 Reactive Lymphs % (Man) 0 % 07/21/20 08:45 Monocytes % (Manual) 3.0 % (0.0-7.3) 07/21/20 08:45 Eosinophils % (Manual) 0 % (0.0-4.3) 07/21/20 08:45 Basophils % (Manual) 0 % (0.0-1.8) 07/21/20 08:45 Metamyelocytes % 0 % 07/21/20 08:45 Myelocytes % 0 % 07/21/20 08:45 Promyelocytes % 0 % 07/21/20 08:45 Blast Cells % 0 % 07/21/20 08:45 Nucleated RBC % Not Reportable 07/21/20 08:45 Seg Neutrophils # 4.5 K/mm3 (1.8-7.7) 07/22/20 04:40 Seg Neutrophils # Man 12.5 K/mm3 (1.8-7.7) H 07/21/20 08:45 Band Neutrophils # 0.1 K/mm3 07/21/20 08:45 Lymphocytes # (Manual) 0.5 K/mm3 (1.2-5.4) L 07/21/20 08:45 Abs React Lymphs (Man) 0.0 K/mm3 07/21/20 08:45 Monocytes # (Manual) 0.4 K/mm3 (0.0-0.8) 07/21/20 08:45 Eosinophils # (Manual) 0.0 K/mm3 (0.0-0.4) 07/21/20 08:45 Basophils # (Manual) 0.0 K/mm3 (0.0-0.1) 07/21/20 08:45 Metamyelocytes # 0.0 K/mm3 07/21/20 08:45 Myelocytes # 0.0 K/mm3 07/21/20 08:45 Promyelocytes # 0.0 K/mm3 07/21/20 08:45 Blast Cells # 0.0 K/mm3 07/21/20 08:45 WBC Morphology Not Reportable 07/21/20 08:45 Hypersegmented Neuts Not Reportable 07/21/20 08:45 Hyposegmented Neuts Not Reportable 07/21/20 08:45 Hypogranular Neuts Not Reportable 07/21/20 08:45 Smudge Cells Not Reportable 07/21/20 08:45 Toxic Granulation Not Reportable 07/21/20 08:45 Toxic Vacuolation Not Reportable 07/21/20 08:45 Dohle Bodies Not Reportable 07/21/20 08:45 Pelger-Huet Anomaly Not Reportable 07/21/20 08:45 Michelle Rods Not Reportable 07/21/20 08:45 Platelet Estimate Consistent w auto 07/21/20 08:45 Clumped Platelets Not Reportable 07/21/20 08:45 Plt Clumps, EDTA Not Reportable 07/21/20 08:45 Large Platelets Not Reportable 07/21/20 08:45 Giant Platelets Not Reportable 07/21/20 08:45 Platelet Satelliting Not Reportable 07/21/20 08:45 Plt Morphology Comment Not Reportable 07/21/20 08:45 RBC Morphology Normal 07/21/20 08:45 Dimorphic RBCs Not Reportable 07/21/20 08:45 Polychromasia Not Reportable 07/21/20 08:45 Hypochromasia Not Reportable 07/21/20 08:45 Poikilocytosis Not Reportable 07/21/20 08:45 Anisocytosis Not Reportable 07/21/20 08:45 Microcytosis Not Reportable 07/21/20 08:45 Macrocytosis Not Reportable 07/21/20 08:45 Spherocytes Not Reportable 07/21/20 08:45 Pappenheimer Bodies Not Reportable 07/21/20 08:45 Sickle Cells Not Reportable 07/21/20 08:45 Target Cells Not Reportable 07/21/20 08:45 Tear Drop Cells Not Reportable 07/21/20 08:45 Ovalocytes Not Reportable 07/21/20 08:45 Helmet Cells Not Reportable 07/21/20 08:45 [place] Bodies Not Reportable 07/21/20 08:45 [place] Rings Not Reportable 07/21/20 08:45 Haylee Cells Not Reportable 07/21/20 08:45 Bite Cells Not Reportable 07/21/20 08:45 Crenated Cell Not Reportable 07/21/20 08:45 Elliptocytes Not Reportable 07/21/20 08:45 Acanthocytes (Spur) Not Reportable 07/21/20 08:45 Rouleaux Not Reportable 07/21/20 08:45 Hemoglobin C Crystals Not Reportable 07/21/20 08:45 Schistocytes Not Reportable 07/21/20 08:45 Malaria parasites Not Reportable 07/21/20 08:45 Curt Bodies Not Reportable 07/21/20 08:45 Hem Pathologist Commnt No 07/21/20 08:45 Sodium 135 mmol/L (137-145) L 07/23/20 06:42 Potassium 4.1 mmol/L (3.6-5.0) 07/23/20 06:42 Chloride 101.7 mmol/L (98-107) 07/23/20 06:42 Carbon Dioxide 23 mmol/L (22-30) 07/23/20 06:42 Anion Gap 14 mmol/L 07/23/20 06:42 BUN 31 mg/dL (7-17) H 07/23/20 06:42 Creatinine 1.1 mg/dL (0.6-1.2) 07/23/20 06:42 Estimated GFR 50 ml/min 07/23/20 06:42 BUN/Creatinine Ratio 28 % 07/23/20 06:42 Glucose 134 mg/dL (65-100) H 07/23/20 06:42 POC Glucose 129 (70-105) H 07/23/20 10:15 Calcium 8.7 mg/dL (8.4-10.2) 07/23/20 06:42 Total Bilirubin 0.50 mg/dL (0.1-1.2) 07/22/20 04:40 Direct Bilirubin < 0.2 mg/dL (0-0.2) 07/21/20 08:45 Indirect Bilirubin 0.5 mg/dL 07/21/20 08:45 AST 24 units/L (5-40) 07/22/20 04:40 ALT 17 units/L (7-56) 07/22/20 04:40 Alkaline Phosphatase 62 units/L (35-129) 07/22/20 04:40 Total Protein 6.0 g/dL (6.3-8.2) L 07/22/20 04:40 Albumin 3.7 g/dL (3.9-5) L 07/22/20 04:40 Albumin/Globulin Ratio 1.6 % 07/22/20 04:40 Lipase 15 units/L (13-60) 07/21/20 08:45 Urine Color Khushboo (Yellow) 07/21/20 Unknown Urine Turbidity Cloudy (Clear) 07/21/20 Unknown Urine pH 5.0 (5.0-7.0) 07/21/20 Unknown Ur Specific Alexander 1.020 (1.003-1.030) 07/21/20 Unknown Urine Protein 30 mg/dl mg/dL (Negative) 07/21/20 Unknown Urine Glucose (UA) Neg mg/dL (Negative) 07/21/20 Unknown Urine Ketones Neg mg/dL (Negative) 07/21/20 Unknown Urine Blood Neg (Negative) 07/21/20 Unknown Urine Nitrite Neg (Negative) 07/21/20 Unknown Urine Bilirubin Neg (Negative) 07/21/20 Unknown Urine Urobilinogen < 2.0 mg/dL (<2.0) 07/21/20 Unknown Ur Leukocyte Esterase Lg (Negative) 07/21/20 Unknown Urine WBC (Auto) 10.0 /HPF (0.0-6.0) H 07/21/20 Unknown Urine RBC (Auto) 4.0 /HPF (0.0-6.0) 07/21/20 Unknown U Epithel Cells (Auto) 5.0 /HPF (0-13.0) 07/21/20 Unknown Urine Bacteria (Auto) 2+ /HPF (Negative) 07/21/20 Unknown Hyaline Casts 6 /LPF 07/21/20 Unknown Urine Mucus 1+ /HPF 07/21/20 Unknown Microbiology: Microbiology 07/21/20 Unknown Urine,Clean Catch Urine Culture - Final Klebsiella Pneumoniae Saldaña/IV: Voiding Method Toilet IV Catheter Type [Right INT / Saline Lock Forearm] IV Catheter Type [Left INT / Saline Lock Antecubital] Active Medications - Current Medications Current Medications: Generic Name Dose Route Start Last Admin Trade Name Freq PRN Reason Stop Dose Admin Acetaminophen 650 mg 07/21/20 22:46 Tylenol PO Q4H PRN Pain MILD(1-3)/Fever >100.5/MARIN Clonidine HCl 0.1 mg 07/22/20 10:00 07/22/20 12:09 Catapres-Tts Patch TD 0.1 mg We VENKAT Administration Dexamethasone 4 mg 07/22/20 10:00 07/22/20 11:05 Decadron IV 4 mg Q24H VENKAT Administration Famotidine 20 mg 07/21/20 23:00 07/23/20 10:31 Pepcid IV 20 mg QAM VENKAT Administration Heparin Sodium (Porcine) 5,000 unit 07/22/20 22:00 07/22/20 22:07 Heparin SUB-Q 5,000 unit Q12HR VENKAT Administration Hydromorphone HCl 0.25 mg 07/23/20 10:22 Dilaudid IV 07/23/20 23:59 Q10MIN PRN Pain, Moderate (4-6) Hydromorphone HCl 0.5 mg 07/23/20 10:22 Dilaudid IV 07/23/20 23:59 Q10MIN PRN Pain , Severe (7-10) Cefazolin Sodium 2 gm in 20 mls @ 80 mls/hr 07/23/20 06:00 Ancef/Sterile Water 2 Gm/20 Ml IV 07/23/20 23:00 PREOP NR Dextrose/Sodium Chloride 1,000 mls @ 125 mls/hr 07/21/20 23:00 07/23/20 08:53 D5ns IV 125 mls/hr DIRECT VENKAT Administration Ceftriaxone Sodium 1 gm in 50 mls @ 100 mls/hr 07/22/20 10:00 07/22/20 12:13 Rocephin/Ns 1 Gm/50 Ml IV 100 mls/hr Q24HR VENKAT Administration Protocol Sodium Chloride 1,000 mls @ 75 mls/hr 07/23/20 10:30 07/23/20 10:30 Nacl 0.9% 1000 Ml IV 75 mls/hr DIRECT VENKAT Administration Insulin Human Regular 0 unit 07/22/20 14:00 07/23/20 06:00 Humulin R SUB-Q Not Given Q8H VENKAT Protocol Levothyroxine Sodium 100 mcg 07/22/20 09:00 07/23/20 10:34 Synthroid IV 100 mcg DAILY@0600 VENKAT Administration Morphine Sulfate 4 mg 07/21/20 14:32 07/22/20 14:02 Morphine IV 4 mg Q3H PRN Administration Pain , Severe (7-10) Ondansetron HCl 4 mg 07/21/20 22:46 Zofran IV Q8H PRN Nausea And Vomiting Ondansetron HCl 4 mg 07/23/20 10:22 Zofran IV ONCE PRN Nausea And Vomiting Sodium Chloride 10 ml 07/21/20 23:00 07/22/20 22:00 Sodium Chloride Flush Syringe 10 Ml IV Not Given BID VENKAT Sodium Chloride 10 ml 07/21/20 22:46 Sodium Chloride Flush Syringe 10 Ml IV PRN PRN LINE FLUSH Nutrition/Malnutrition Assess - Dietary Evaluation Nutrition/Malnutrition Findings: Nutrition Notes Start: 07/22/20 10:54 Freq: Status: Active Protocol: Document 07/22/20 11:33 ROBIN (Rec: 07/22/20 11:38 ROBIN [id number]) Co-Sign 07/22/20 11:33 LM Nutrition Notes Need for Assessment generated from: specimen boss,MST Initial or Follow up Assessment Current Diagnosis Acute Kidney Injury, Hypertension,Small Bowel Obstruction Other Pertinent Diagnosis Hyponatremia, Lupus Current Diet NPO Labs/Tests Na 136 BUN 44 Cr 1.7 BG 118 Pertinent Medications D5ns 125 ml/hr Height 5 ft 1.5 in Weight 70.5 kg Usual Body Weight 69.5 kg [place] Body Weight (kg) 48.86 BMI 28.8 Intake Prior to Admission Good Weight change and time frame Wt change noted Weight Status Overweight Subjective/Other Information RN consult for MST. UBW obtained from pt. Pt reports no recent wt loss, NPO for 3 days. Burn Absent Trauma Absent GI Symptoms Nausea,Vomiting Food Allergy No Current % PO Negligible Minimum of two criteria No physical signs of malnutrition #1 Nutrition Diagnosis Inadequate oral intake Etiology SBO As Evidenced by Signs and Symptoms NPO Is patient on ventilator? No Is Patient Ambulatory and/or Out of Bed No REE-([place]-confined to bed) 1433.868 Calculation Used for Recommendations [place] Additional Notes Protein needs are 70-86 g (1-1 .2 g/kg) Fluid needs are 1 ml/kcal Nutrition Intervention Change Diet Order: Diet advancement per MD when feasible Goal #1 Meet 75% energy and protein needs Goal #2 Diet advancement Anticipated Discharge Needs: Unable to determine at this time Follow-Up By: 07/24/20 Additional Comments F/U for diet advancement and Na levels
--- NOTE | 2020-07-23 13:43 | Post Operative Note ---
Date of procedure: 07/23/20 (dictation:[id number]) Pre-op diagnosis: incarcerated umbilical hernia with obstruction Post-op diagnosis: same Findings: large amount of omentum incarcerted in hernia with a loop of small bowel. Small bowel was significantly damaged Fascial opening was about 3-4cm Procedure: robotic assisted lap reduction of incarcerated umbilical hernia, partial omentectomy open small bowel resection open primary repair of umbilical hernia open partial resection of hernia sac. IVF 1L EBL <50cc Anesthesia: GETA Surgeon: ISAMAR GRANT Estimated blood loss: minimal (<50cc) Pathology: list (small bowel, portion of omentum, portion of hernia sac) Specimen disposition: to lab Condition: stable Disposition: PACU
--- NOTE | 2020-07-23 16:41 | Post Anesthesia Evaluation ---
- Post Anesthesia Evaluation Patient Participated: Yes Airway Patent: Yes Stable Respiratory Function: Yes Nausea/Vomiting: No Temp > 96.8F: Yes Pain Manageable: Yes Adequeate Hydration: Yes Anesthesia Complications: No Block Receding Appropriately: Not Applicable Patient on Ventilator: No
[2020-07-23] MEDS: cefTRIAXone/NS 1 GM/50 ML 1 GM/50 ML BAG IV SCH (17:50)
[2020-07-23] MEDS: HEPARIN 5,000 UNIT/1 ML VIAL SUB-Q SCH ×2 (17:50→21:06)
[2020-07-23] MEDS: dexAMETHasone 4 MG/ML VIAL IV SCH (17:56)
[2020-07-23] MEDS: MORPHINE 4 MG/1 ML INJ IV PRN ×2 (17:56→21:06)
--- NOTE | 2020-07-23 21:07 | Operative Report ---
PREOPERATIVE DIAGNOSIS: Incarcerated umbilical hernia with obstruction. POSTOPERATIVE DIAGNOSIS: Incarcerated umbilical hernia with obstruction. PROCEDURE: 1. Robotic-assisted laparoscopic reduction of incarcerated umbilical hernia. 2. Laparoscopic partial omentectomy. 3. Open small bowel resection. 4. Open primary umbilical hernia repair. ATTENDING PHYSICIAN: Kade Mcneal MD CLAY HOUSE WORKER: Denise Tapia. ANESTHESIA: General. ESTIMATED BLOOD LOSS: Less than 50 mL. FLUIDS: 1 liters. FINDINGS: The patient had a large amount of omentum as well as a portion of small bowel that were incarcerated in an umbilical hernia that had a fascial defect approximately 3-4 cm in diameter. A significant portion of the omentum had been bruised with a small section that was ischemic. The small bowel had been traumatized such that we were concerned for its future viability. SPECIMENS: 1. Approximately 10 cm of small bowel. 2. Portion of omentum. 3. Portion of hernia sac. DRAINS: None. COMPLICATIONS: None. IMPLANTS: None. INDICATIONS: This is a 65-year-old female with a long history of an umbilical hernia that has been enlarging over time. Recently, she experienced sudden onset of nausea and vomiting as well as pain. She presented to the Emergency Room after being seen at another outside institution. The patient was assessed to be need for admission and resuscitation, as she had acute kidney injury as well. The patient is assessed to be need for further surgery as the hernia was unreducible and she continued to have evidence of an obstruction. Procedure, risks, benefits were explained to the patient. Risks include but were not limited to infection, bleeding, pain, injury to surrounding structures, possible recurrence, possible need for further surgery in the future. The patient understood and consented. OPERATIVE NOTE: The patient was brought to the operating room and placed on the table in supine position. After adequate general anesthesia was established, the patient was prepped and draped in the usual sterile fashion. Antibiotics have been given at the beginning of the case. SCDs were in place. Saldaña catheter was placed. OG tube was placed. After sterile prep and drape was performed. Time-out was called. I began by placing a Veress needle in left upper quadrant. I was able to insufflate in first attempt. This was replaced with a 5 mm port that we placed using the Optiview technique. We entered the peritoneal cavity safely. There was no injury to the underlying structures. We examined the hernia and the surrounding abdomen, we felt that placement of the ports across the top of the abdomen would be the best location for repair and the hernia continued to remain nonreducible. The bowel that was incarcerated appeared viable with minimal distention. A 12 mm port was placed in the upper midline, 8 mm on the right upper quadrant and then the 5 was replaced with an 8 under direct vision. The patient was positioned appropriately for the robot. Robot was docked. I then proceeded to the console. I began by gradually taking down the omentum. There was a significant amount of omentum. We were very careful not to put excess tension. I applied gentle tension from multiple different areas with success. We ultimately were able to completely reduce all the contents. This took us quite a while as there was a fair amount. We noted that the portion of the omentum was ischemic. The small bowel was able to be completely reduced. In looking at the small bowel, we carefully analyzed that there was a section in the middle that appeared to be significantly traumatized such that I was concerned that after it healed it may scar down and she would have a stricture or it may continue to have breakdown and such she would be at risk for perforation. Therefore, I altered our plan, I decided to do a small bowel resection and decided to do through her fascial opening. Therefore, we made sure we had good hemostasis before transitioning to an open case. I excised a portion of the omentum and left it near the bowel that we would eventually raise up with a grasper, so that I could grab it once we made a skin incision. We then proceeded to undock the robot. I made an infraumbilical curvilinear incision, dissected down to the fascial defect and then pulled the small bowel and omentum up. I did have to make the fascial defect a little bit longer on either side in order to easily pull up the small bowel. Once we did that, we toweled off the area. I stapled across the segment of bowel that was traumatized and then we did a [id number] anastomosis functional end to end and then the crotch was secured with a 3-0 silk stitch. Lembert sutures were placed across the staple line and we closed the mesenteric defect, all with 3-0 silk sutures. We had good hemostasis. The common channel appeared to be nice and large. Everything looked good. We used a 55 mm HILDA stapler with blue loads. The common channel enterotomy was closed with a TA stapler. Thereafter, we thoroughly irrigated out the area just to make sure that we did not have any residual spillage. Once this was done, the small bowel was reduced back into the abdomen. Towels were passed off. All the dirty tools were passed off. Gloves were changed at this point. Once this was done, we then consider our options. I did not feel comfortable leaving regular mesh in this location as the potential for mesh infection was high from the small bowel resection. We had a dissolvable mesh that would be appropriate in this area; however, it was too large for the small defect that we had; therefore, I elected to do a primary repair. I felt this would be the safest to help minimize breakdown of the repair, I used a yadiel type stitch to minimize tension along the midline. Therefore, interrupted yadiel type stitches were placed with a 0 Prolene. The fascia came together very nicely, very easily. We then returned to a laparoscopic procedure. We looked inside to make sure that I did not inadvertently get any bowel or anything else incorporated into the suture. Everything looked excellent. We then closed the 12 mm port site with a Rylan-Allyssa fascial closure device using a 2-0 Prolene suture. Thereafter, we desufflated the abdomen. Additional local was injected into all the port sites. Ports had been removed. I placed a series of interrupted 3-0 Vicryl sutures in the deep layer of our umbilical hernia site to decrease the space. We excised a portion of the hernia sac with electrocautery and the LigaSure device and then skin was closed at all the sites with 4-0 Monocryl subcuticular stitches. Skin was cleaned and dried. Dermabond was placed. The patient tolerated the procedure well. There were no complications. All counts were correct at the end of the case. JOB# [id number] CARLOS/IKE CHRISTIAN
[2020-07-24] MEDS: MORPHINE 4 MG/1 ML INJ IV PRN ×2 (05:23→09:27)
[2020-07-24] MEDS: LEVOTHYROXINE 100 MCG INJ IV SCH (05:25)
[2020-07-24] MEDS: INSULIN REGULAR, HUMAN 100 UNIT/ML 3ML VIAL SUB-Q SCH ×3 (07:19→21:43)
--- NOTE | 2020-07-24 08:46 | Progress Note ---
Assessment and Plan Assessment and plan: --Incarcerated umbilical hernia with obstruction Patient did not have flatus, mild pain s/p robotic assisted lap reduction of incarcerated umbilical hernia, partial omentectomy open small bowel resection open primary repair of umbilical hernia open partial resection of hernia sac. Postop management per surgery N.p.o., IV fluids, pain medications, supportive care -- MARCELO (acute kidney injury); resolved Continue IV fluids, monitor renal function Avoid nephrotoxins -- Hypothyroidism (acquired) Continue IV Synthroid . -- Hypertension Well-controlled , continue Catapres patch PRN medications -- Lupus (systemic lupus erythematosus) Continue IV Decadron --UTI: Urine cultures positive for Klebsiella pneumonia Sensitive to Rocephin. Consider ID evaluation if needed -- DVT prophylaxis On heparin and GI prophylaxis Brief History: 65yo F with hyperlipidemia, hypothyroidism, other (Lupus, Sjogrens), ventral hernia for 30 years presents with relatively recent onset of abdominal pain, swelling, nausea, vomiting for the past 2 to 3 days. Evaluation emergency department revealed a ventral hernia with small bowel obstruction. General surgery was consulted. 07/22: cont iv fluid, iv abx, pain Mx as needed. NPO with NG suction.plan for surgery tomorrow. 07/23; patient is scheduled for hernia repair today 07/24; status post surgery, postop management per surgery, UTI; urine positive for Klebsiella pneumonia, ID consult if needed History Interval history: I have seen and examined the patient at bedside today Patient's chart and medications reviewed Complains of some pain at the incision site Mild nausea no vomiting Patient did not have flatus or bowel movement Hospitalist Physical - Constitutional Vitals: Temp Pulse Resp BP Pulse Ox 97.8 F 66 18 139/59 93 07/24/20 07:42 07/24/20 07:42 07/24/20 07:42 07/24/20 07:42 07/24/20 07:42 General appearance: Present: no acute distress, well-nourished - EENT Eyes: Present: PERRL, EOM intact - Neck Neck: Present: supple, normal ROM - Respiratory Respiratory effort: normal Respiratory: bilateral: diminished, negative: rales, rhonchi, wheezing - Cardiovascular Rhythm: regular Heart Sounds: Present: S1 & S2 - Extremities Extremities: no ischemia, No edema - Abdominal General gastrointestinal: soft, tender (No guarding no rigidity), absent bowel sounds - Integumentary Integumentary: Present: clear, warm - Psychiatric Psychiatric: appropriate mood/affect, cooperative - Neurologic Neurologic: moves all extremities Results - Labs CBC & Chem 7: 07/24/20 09:37 07/24/20 09:37 Labs: Laboratory Last Values WBC 5.5 K/mm3 (4.5-11.0) 07/22/20 04:40 RBC 3.64 M/mm3 (3.65-5.03) L 07/22/20 04:40 Hgb 11.0 gm/dl (10.1-14.3) 07/22/20 04:40 Hct 32.8 % (30.3-42.9) D 07/22/20 04:40 MCV 90 fl (79-97) 07/22/20 04:40 MCH 30 pg (28-32) 07/22/20 04:40 MCHC 33 % (30-34) 07/22/20 04:40 RDW 14.7 % (13.2-15.2) 07/22/20 04:40 Plt Count 203 K/mm3 (140-440) 07/22/20 04:40 Lymph % (Auto) 7.5 % (13.4-35.0) L 07/22/20 04:40 [place] % (Auto) 8.1 % (0.0-7.3) H 07/22/20 04:40 Eos % (Auto) 1.5 % (0.0-4.3) 07/22/20 04:40 Baso % (Auto) 0.1 % (0.0-1.8) 07/22/20 04:40 Lymph # 0.4 K/mm3 (1.2-5.4) L 07/22/20 04:40 [place] # 0.4 K/mm3 (0.0-0.8) 07/22/20 04:40 Eos # 0.1 K/mm3 (0.0-0.4) 07/22/20 04:40 Baso # 0.0 K/mm3 (0.0-0.1) 07/22/20 04:40 Add Manual Diff Complete 07/21/20 08:45 Total Counted 100 07/21/20 08:45 Seg Neutrophils % 82.8 % (40.0-70.0) H 07/22/20 04:40 Seg Neuts % (Manual) 92.0 % (40.0-70.0) H 07/21/20 08:45 Band Neutrophils % 1.0 % 07/21/20 08:45 Lymphocytes % (Manual) 4.0 % (13.4-35.0) L 07/21/20 08:45 Reactive Lymphs % (Man) 0 % 07/21/20 08:45 Monocytes % (Manual) 3.0 % (0.0-7.3) 07/21/20 08:45 Eosinophils % (Manual) 0 % (0.0-4.3) 07/21/20 08:45 Basophils % (Manual) 0 % (0.0-1.8) 07/21/20 08:45 Metamyelocytes % 0 % 07/21/20 08:45 Myelocytes % 0 % 07/21/20 08:45 Promyelocytes % 0 % 07/21/20 08:45 Blast Cells % 0 % 07/21/20 08:45 Nucleated RBC % Not Reportable 07/21/20 08:45 Seg Neutrophils # 4.5 K/mm3 (1.8-7.7) 07/22/20 04:40 Seg Neutrophils # Man 12.5 K/mm3 (1.8-7.7) H 07/21/20 08:45 Band Neutrophils # 0.1 K/mm3 07/21/20 08:45 Lymphocytes # (Manual) 0.5 K/mm3 (1.2-5.4) L 07/21/20 08:45 Abs React Lymphs (Man) 0.0 K/mm3 07/21/20 08:45 Monocytes # (Manual) 0.4 K/mm3 (0.0-0.8) 07/21/20 08:45 Eosinophils # (Manual) 0.0 K/mm3 (0.0-0.4) 07/21/20 08:45 Basophils # (Manual) 0.0 K/mm3 (0.0-0.1) 07/21/20 08:45 Metamyelocytes # 0.0 K/mm3 07/21/20 08:45 Myelocytes # 0.0 K/mm3 07/21/20 08:45 Promyelocytes # 0.0 K/mm3 07/21/20 08:45 Blast Cells # 0.0 K/mm3 07/21/20 08:45 WBC Morphology Not Reportable 07/21/20 08:45 Hypersegmented Neuts Not Reportable 07/21/20 08:45 Hyposegmented Neuts Not Reportable 07/21/20 08:45 Hypogranular Neuts Not Reportable 07/21/20 08:45 Smudge Cells Not Reportable 07/21/20 08:45 Toxic Granulation Not Reportable 07/21/20 08:45 Toxic Vacuolation Not Reportable 07/21/20 08:45 Dohle Bodies Not Reportable 07/21/20 08:45 Pelger-Huet Anomaly Not Reportable 07/21/20 08:45 Michelle Rods Not Reportable 07/21/20 08:45 Platelet Estimate Consistent w auto 07/21/20 08:45 Clumped Platelets Not Reportable 07/21/20 08:45 Plt Clumps, EDTA Not Reportable 07/21/20 08:45 Large Platelets Not Reportable 07/21/20 08:45 Giant Platelets Not Reportable 07/21/20 08:45 Platelet Satelliting Not Reportable 07/21/20 08:45 Plt Morphology Comment Not Reportable 07/21/20 08:45 RBC Morphology Normal 07/21/20 08:45 Dimorphic RBCs Not Reportable 07/21/20 08:45 Polychromasia Not Reportable 07/21/20 08:45 Hypochromasia Not Reportable 07/21/20 08:45 Poikilocytosis Not Reportable 07/21/20 08:45 Anisocytosis Not Reportable 07/21/20 08:45 Microcytosis Not Reportable 07/21/20 08:45 Macrocytosis Not Reportable 07/21/20 08:45 Spherocytes Not Reportable 07/21/20 08:45 Pappenheimer Bodies Not Reportable 07/21/20 08:45 Sickle Cells Not Reportable 07/21/20 08:45 Target Cells Not Reportable 07/21/20 08:45 Tear Drop Cells Not Reportable 07/21/20 08:45 Ovalocytes Not Reportable 07/21/20 08:45 Helmet Cells Not Reportable 07/21/20 08:45 [place] Bodies Not Reportable 07/21/20 08:45 [place] Rings Not Reportable 07/21/20 08:45 [place] Cells Not Reportable 07/21/20 08:45 Bite Cells Not Reportable 07/21/20 08:45 Crenated Cell Not Reportable 07/21/20 08:45 Elliptocytes Not Reportable 07/21/20 08:45 Acanthocytes (Spur) Not Reportable 07/21/20 08:45 Rouleaux Not Reportable 07/21/20 08:45 Hemoglobin C Crystals Not Reportable 07/21/20 08:45 Schistocytes Not Reportable 07/21/20 08:45 Malaria parasites Not Reportable 07/21/20 08:45 Curt Bodies Not Reportable 07/21/20 08:45 Hem Pathologist Commnt No 07/21/20 08:45 Sodium 135 mmol/L (137-145) L 07/23/20 06:42 Potassium 4.1 mmol/L (3.6-5.0) 07/23/20 06:42 Chloride 101.7 mmol/L (98-107) 07/23/20 06:42 Carbon Dioxide 23 mmol/L (22-30) 07/23/20 06:42 Anion Gap 14 mmol/L 07/23/20 06:42 BUN 31 mg/dL (7-17) H 07/23/20 06:42 Creatinine 1.1 mg/dL (0.6-1.2) 07/23/20 06:42 Estimated GFR 50 ml/min 07/23/20 06:42 BUN/Creatinine Ratio 28 % 07/23/20 06:42 Glucose 134 mg/dL (65-100) H 07/23/20 06:42 POC Glucose 116 (70-105) H 07/24/20 06:31 Calcium 8.7 mg/dL (8.4-10.2) 07/23/20 06:42 Total Bilirubin 0.50 mg/dL (0.1-1.2) 07/22/20 04:40 Direct Bilirubin < 0.2 mg/dL (0-0.2) 07/21/20 08:45 Indirect Bilirubin 0.5 mg/dL 07/21/20 08:45 AST 24 units/L (5-40) 07/22/20 04:40 ALT 17 units/L (7-56) 07/22/20 04:40 Alkaline Phosphatase 62 units/L (35-129) 07/22/20 04:40 Total Protein 6.0 g/dL (6.3-8.2) L 07/22/20 04:40 Albumin 3.7 g/dL (3.9-5) L 07/22/20 04:40 Albumin/Globulin Ratio 1.6 % 07/22/20 04:40 Lipase 15 units/L (13-60) 07/21/20 08:45 Urine Color [place] (Yellow) 07/21/20 Unknown Urine Turbidity Cloudy (Clear) 07/21/20 Unknown Urine pH 5.0 (5.0-7.0) 07/21/20 Unknown Ur Specific [place] 1.020 (1.003-1.030) 07/21/20 Unknown Urine Protein 30 mg/dl mg/dL (Negative) 07/21/20 Unknown Urine Glucose (UA) Neg mg/dL (Negative) 07/21/20 Unknown Urine Ketones Neg mg/dL (Negative) 07/21/20 Unknown Urine Blood Neg (Negative) 07/21/20 Unknown Urine Nitrite Neg (Negative) 07/21/20 Unknown Urine Bilirubin Neg (Negative) 07/21/20 Unknown Urine Urobilinogen < 2.0 mg/dL (<2.0) 07/21/20 Unknown Ur Leukocyte Esterase Lg (Negative) 07/21/20 Unknown Urine WBC (Auto) 10.0 /HPF (0.0-6.0) H 07/21/20 Unknown Urine RBC (Auto) 4.0 /HPF (0.0-6.0) 07/21/20 Unknown U Epithel Cells (Auto) 5.0 /HPF (0-13.0) 07/21/20 Unknown Urine Bacteria (Auto) 2+ /HPF (Negative) 07/21/20 Unknown Hyaline Casts 6 /LPF 07/21/20 Unknown Urine Mucus 1+ /HPF 07/21/20 Unknown Microbiology: Microbiology 07/21/20 Unknown Urine,Clean Catch Urine Culture - Final Klebsiella Pneumoniae Saldaña/IV: Voiding Method Bedpan IV Catheter Type [Right INT / Saline Lock Forearm] IV Catheter Type [Left INT / Saline Lock Antecubital] Active Medications - Current Medications Current Medications: Generic Name Dose Route Start Last Admin Trade Name Freq PRN Reason Stop Dose Admin Acetaminophen 650 mg 07/21/20 22:46 Tylenol PO Q4H PRN Pain MILD(1-3)/Fever >100.5/MARIN Clonidine HCl 0.1 mg 07/22/20 10:00 07/22/20 12:09 Catapres-Tts Patch TD 0.1 mg We VENKAT Administration Dexamethasone 4 mg 07/22/20 10:00 07/23/20 17:56 Decadron IV 4 mg Q24H VENKAT Administration Famotidine 20 mg 07/21/20 23:00 07/23/20 10:31 Pepcid IV 20 mg QAM VENKAT Administration Heparin Sodium (Porcine) 5,000 unit 07/22/20 22:00 07/23/20 21:06 Heparin SUB-Q 5,000 unit Q12HR VENKAT Administration Dextrose/Sodium Chloride 1,000 mls @ 125 mls/hr 07/21/20 23:00 07/23/20 08:53 D5ns IV 125 mls/hr DIRECT VENKAT Administration Ceftriaxone Sodium 1 gm in 50 mls @ 100 mls/hr 07/22/20 10:00 07/23/20 17:50 Rocephin/Ns 1 Gm/50 Ml IV Not Given Q24HR VENKAT Protocol Sodium Chloride 1,000 mls @ 75 mls/hr 07/23/20 10:30 07/23/20 18:11 Nacl 0.9% 1000 Ml IV 75 mls/hr DIRECT VENKAT Administration Insulin Human Regular 0 unit 07/22/20 14:00 07/24/20 07:19 Humulin R SUB-Q Not Given Q8H VENKAT Protocol Levothyroxine Sodium 100 mcg 07/22/20 09:00 07/24/20 05:25 Synthroid IV 100 mcg DAILY@0600 VENKAT Administration Morphine Sulfate 4 mg 07/21/20 14:32 07/24/20 05:23 Morphine IV 4 mg Q3H PRN Administration Pain , Severe (7-10) Ondansetron HCl 4 mg 07/21/20 22:46 07/23/20 21:06 Zofran IV 4 mg Q8H PRN Administration Nausea And Vomiting Sodium Chloride 10 ml 07/21/20 23:00 07/23/20 21:07 Sodium Chloride Flush Syringe 10 Ml IV 10 ml BID VENKAT Administration Sodium Chloride 10 ml 07/21/20 22:46 Sodium Chloride Flush Syringe 10 Ml IV PRN PRN LINE FLUSH Nutrition/Malnutrition Assess - Dietary Evaluation Nutrition/Malnutrition Findings: Nutrition Notes Start: 07/22/20 10: 54 Freq: Status: Active Protocol: Document 07/22/20 11:33 ROBIN (Rec: 07/22/20 11:38 ROBIN [id number]) Co-Sign 07/22/20 11:33 LM Nutrition Notes Need for Assessment generated from: physical laboratory assistant,MST Initial or Follow up Assessment Current Diagnosis Acute Kidney Injury, Hypertension,Small Bowel Obstruction Other Pertinent Diagnosis Hyponatremia, Lupus Current Diet NPO Labs/Tests Na 136 BUN 44 Cr 1.7 BG 118 Pertinent Medications D5ns 125 ml/hr Height 5 ft 1.5 in Weight 70.5 kg Usual Body Weight 69.5 kg [place] Body Weight (kg) 48.86 BMI 28.8 Intake Prior to Admission Good Weight change and time frame Wt change noted Weight Status Overweight Subjective/Other Information RN consult for MST. UBW obtained from pt. Pt reports no recent wt loss, NPO for 3 days. Burn Absent Trauma Absent GI Symptoms Nausea,Vomiting Food Allergy No Current % PO Negligible Minimum of two criteria No physical signs of malnutrition #1 Nutrition Diagnosis Inadequate oral intake Etiology SBO As Evidenced by Signs and Symptoms NPO Is patient on ventilator? No Is Patient Ambulatory and/or Out of Bed No REE-([place]-St. Jeor-confined to bed) 1433.868 Calculation Used for Recommendations [place]-St Jeor Additional Notes Protein needs are 70-86 g (1-1 .2 g/kg) Fluid needs are 1 ml/kcal Nutrition Intervention Change Diet Order: Diet advancement per MD when feasible Goal #1 Meet 75% energy and protein needs Goal #2 Diet advancement Anticipated Discharge Needs: Unable to determine at this time Follow-Up By: 07/24/20 Additional Comments F/U for diet advancement and Na levels
[2020-07-24] MEDS: cefTRIAXone/NS 1 GM/50 ML 1 GM/50 ML BAG IV SCH (09:25)
[2020-07-24] MEDS: HEPARIN 5,000 UNIT/1 ML VIAL SUB-Q SCH ×2 (09:25→21:36)
[2020-07-24] MEDS: FAMOTIDINE 20 MG/2 ML INJ IV SCH (09:25)
[2020-07-24 10:25] LABS: Hematocrit 29.4 % (30.3-42.9); Hemoglobin 9.7 gm/dl (10.1-14.3); Mean Corpuscular HGB Conc 33 % (30-34); Mean Corpuscular Volume 92 fl (79-97); Platelet Count 237 K/mm3 (140-440); Red Blood Count 3.18 M/mm3 (3.65-5.03)
[2020-07-24 10:46] LABS: Calcium 8.7 mg/dL (8.4-10.2)
--- NOTE | 2020-07-24 11:59 | Progress Note ---
Assessment and Plan - Patient Problems (1) Ventral hernia with bowel obstruction Current Visit: Yes Status: Acute Plan to address problem: Pt stable. s/p robotic assisted lap reduction of incarcerated umbilical hernia. lap partial omentectomy, open small bowel resection, open primary repair of umbilical hernia (07/23) - POD#1. Patient appears to be doing well. We will need to wait for resumption of bowel function before we can remove the NG tube and start a diet. I encouraged her to ambulate and do the incentive spirometry. She was very appreciative of the care. She appears a bit dry so I will order a 500 cc fluid bolus. To help with the p ain control, I will order low-dose scheduled Toradol. Please call with any questions Subjective Date of service: 07/24/20 Patient Reports: Positive: no new complaints, feels better, no flatus, no bowel movement, other (Has incisional pain now.). Negative: nausea, vomiting Objective Vital Signs - 12hr 07/24/20 07/24/20 07/24/20 04:18 05:23 07:42 Temperature 98.6 F 97.8 F Pulse Rate 63 66 Respiratory 18 20 18 Rate Blood Pressure 127/59 139/59 O2 Sat by Pulse 94 93 Oximetry - General physical appearance no distress, no pain, other (Looks well) - Respiratory normal expansion, normal respiratory effort - Abdomen soft, not distended, surgical scars (Clear, dry, intact. Mild bruising is noted around the umbilicus.) - Psychiatric oriented to time, oriented to person, oriented to place, speech is normal, memory intact - Labs 07/24/20 09:37 07/24/20 09:37 Diabetes panel 07/24/20 Range/Units 09:37 Sodium 136 L (137-145) mmol/L Potassium 4.7 (3.6-5.0) mmol/L Chloride 103.5 (98-107) mmol/L Carbon Dioxide 19 L (22-30) mmol/L BUN 24 H (7-17) mg/dL Creatinine 1.1 (0.6-1.2) mg/dL Glucose 109 H (65-100) mg/dL Calcium 8.7 (8.4-10.2) mg/dL Calcium panel 07/24/20 Range/Units 09:37 Calcium 8.7 (8.4-10.2) mg/dL Pituitary panel 07/24/20 Range/Units 09:37 Sodium 136 L (137-145) mmol/L Potassium 4.7 (3.6-5.0) mmol/L Chloride 103.5 (98-107) mmol/L Carbon Dioxide 19 L (22-30) mmol/L BUN 24 H (7-17) mg/dL Creatinine 1.1 (0.6-1.2) mg/dL Glucose 109 H (65-100) mg/dL Calcium 8.7 (8.4-10.2) mg/dL Adrenal panel 07/24/20 Range/Units 09:37 Sodium 136 L (137-145) mmol/L Potassium 4.7 (3.6-5.0) mmol/L Chloride 103.5 (98-107) mmol/L Carbon Dioxide 19 L (22-30) mmol/L BUN 24 H (7-17) mg/dL Creatinine 1.1 (0.6-1.2) mg/dL Glucose 109 H (65-100) mg/dL Calcium 8.7 (8.4-10.2) mg/dL
[2020-07-24] MEDS ORDERED: SODIUM CHLORIDE 0.9% 1000 ML 1,000 ML IV SCH (12:00)
[2020-07-24] MEDS: dexAMETHasone 4 MG/ML VIAL IV SCH (12:09)
[2020-07-24] MEDS: KETOROLAC 30 MG/1 ML INJ IV SCH ×2 (12:47→18:46)
[2020-07-24] MEDS: D5NS W/KCL 20 MEQ 20 MEQ/1,000 ML BAG IV SCH (16:44)
[2020-07-25] MEDS: KETOROLAC 30 MG/1 ML INJ IV SCH ×4 (01:06→18:32)
[2020-07-25] MEDS: D5NS W/KCL 20 MEQ 20 MEQ/1,000 ML BAG IV SCH ×2 (02:10→13:00)
[2020-07-25] MEDS: LEVOTHYROXINE 100 MCG INJ IV SCH (05:11)
[2020-07-25] MEDS: INSULIN REGULAR, HUMAN 100 UNIT/ML 3ML VIAL SUB-Q SCH ×3 (06:32→21:59)
[2020-07-25] MEDS: HEPARIN 5,000 UNIT/1 ML VIAL SUB-Q SCH ×2 (09:56→21:32)
[2020-07-25] MEDS: dexAMETHasone 4 MG/ML VIAL IV SCH (09:56)
[2020-07-25] MEDS: FAMOTIDINE 20 MG/2 ML INJ IV SCH (09:56)
[2020-07-25] MEDS: CITALOPRAM 20 MG TAB PO SCH (09:56)
[2020-07-25] MEDS: cefTRIAXone/NS 1 GM/50 ML 1 GM/50 ML BAG IV SCH (10:09)
--- NOTE | 2020-07-25 12:17 | Progress Note ---
Assessment and Plan - Patient Problems (1) Ventral hernia with bowel obstruction Current Visit: Yes Status: Acute Plan to address problem: Pt stable. s/p robotic assisted lap reduction of incarcerated umbilical hernia. lap partial omentectomy, open small bowel resection, open primary repair of umbilical hernia (07/23) - POD#2. Patient appears to be doing well. There was a misunderstanding between the patient and the nurse this morning such that the nurse thought the patient was passing flatus. It turns out that is not the case. NG tube had been removed because it appeared the bowel function had resumed. Therefore, I advised the patient just to have sips of liquid. We are not quite ready for a full tray of clear liquids. If she gets nauseated, she should stop taking in the liquids. If she is vomiting, NG tube will be replaced. As soon as patient is able to be advanced in her diet and she tolerates it, she will be ready for discharge. Please call with any questions Subjective Date of service: 07/25/20 Patient Reports: Positive: feels better, no flatus, no bowel movement, other (had 1 burp). Negative: nausea, vomiting Objective Vital Signs - 12hr 07/25/20 07/25/20 07/25/20 01:06 01:59 05:06 Temperature 98.1 F 98.6 F Pulse Rate 62 63 Respiratory 18 18 18 Rate Blood Pressure Blood Pressure 151/68 140/66 [Left] O2 Sat by Pulse 95 96 Oximetry 07/25/20 07/25/20 07/25/20 05:11 07:20 11:06 Temperature 97.9 F 98.8 F Pulse Rate 62 64 Respiratory 18 18 20 Rate Blood Pressure 130/60 147/73 Blood Pressure [Left] O2 Sat by Pulse 96 98 Oximetry - General physical appearance no distress, no pain, other (looks better) - Respiratory normal expansion, normal respiratory effort - Abdomen soft - Psychiatric oriented to time, oriented to person, oriented to place, speech is normal, memory intact - Labs 07/24/20 09:37 07/24/20 09:37
--- NOTE | 2020-07-25 12:50 | Progress Note ---
Assessment and Plan Assessment and plan: --Incarcerated umbilical hernia with obstruction Patient did not have flatus, mild pain s/p robotic assisted lap reduction of incarcerated umbilical hernia, partial omentectomy open small bowel resection open primary repair of umbilical hernia open partial resection of hernia sac. Postop management per surgery N.p.o., IV fluids, pain medications, supportive care -- MARCELO (acute kidney injury); resolved Continue IV fluids, monitor renal function Avoid nephrotoxins -- Hypothyroidism (acquired) Continue IV Synthroid . -- Hypertension Well-controlled , continue Catapres patch PRN medications -- Lupus (systemic lupus erythematosus) Continue IV Decadron --UTI: Urine cultures positive for Klebsiella pneumonia Sensitive to Rocephin. Consider ID evaluation if needed -- DVT prophylaxis On heparin and GI prophylaxis Brief History: 65yo F with hyperlipidemia, hypothyroidism, other (Lupus, Sjogrens), ventral hernia for 30 years presents with relatively recent onset of abdominal pain, swelling, nausea, vomiting for the past 2 to 3 days. Evaluation emergency department revealed incarcerated umbilical hernia with small bowel obstruction. General surgery evaluated the patient, underwent surgical procedure, postop care per surgery 07/22: cont iv fluid, iv abx, pain Mx as needed. NPO with NG suction.plan for surgery tomorrow. 07/23; patient is scheduled for hernia repair today 07/24; status post surgery, postop management per surgery, UTI; urine positive for Klebsiella pneumonia, ID consult if needed 07/25; patient did not have flatus, continue n.p.o. status, IV fluids , pain medications and IV antibiotics supportive care History Interval history: I have seen and examined the patient at the bedside Patient's chart and medications reviewed Patient feels better ambulated Denies nausea vomiting or abdominal pain Vital signs reviewed Did not have flatus Hospitalist Physical - Constitutional Vitals: Temp Pulse Resp BP Pulse Ox 98.8 F 64 20 147/73 98 07/25/20 11:06 07/25/20 11:06 07/25/20 11:06 07/25/20 11:06 07/25/20 11:06 General appearance: Present: no acute distress, well-nourished - EENT Eyes: Present: PERRL, EOM intact ENT: hearing intact, clear oral mucosa - Neck Neck: Present: supple, normal ROM - Respiratory Respiratory effort: normal Respiratory: bilateral: diminished, negative: rales, rhonchi, wheezing - Cardiovascular Rhythm: regular Heart Sounds: Present: S1 & S2 - Extremities Extremities: no ischemia, No edema - Abdominal General gastrointestinal: soft, tender (Mild tenderness no guarding or rigidity) - Integumentary Integumentary: Present: clear, warm - Psychiatric Psychiatric: appropriate mood/affect, cooperative - Neurologic Neurologic: moves all extremities Results - Labs CBC & Chem 7: 07/24/20 09:37 07/24/20 09:37 Labs: Laboratory Last Values WBC 4.8 K/mm3 (4.5-11.0) 07/24/20 09:37 RBC 3.18 M/mm3 (3.65-5.03) L 07/24/20 09:37 Hgb 9.7 gm/dl (10.1-14.3) L 07/24/20 09:37 Hct 29.4 % (30.3-42.9) L 07/24/20 09:37 MCV 92 fl (79-97) 07/24/20 09:37 MCH 31 pg (28-32) 07/24/20 09:37 MCHC 33 % (30-34) 07/24/20 09:37 RDW 15.0 % (13.2-15.2) 07/24/20 09:37 Plt Count 237 K/mm3 (140-440) 07/24/20 09:37 Lymph % (Auto) 7.5 % (13.4-35.0) L 07/22/20 04:40 [place] % (Auto) 8.1 % (0.0-7.3) H 07/22/20 04:40 Eos % (Auto) 1.5 % (0.0-4.3) 07/22/20 04:40 Baso % (Auto) 0.1 % (0.0-1.8) 07/22/20 04:40 Lymph # 0.4 K/mm3 (1.2-5.4) L 07/22/20 04:40 [place] # 0.4 K/mm3 (0.0-0.8) 07/22/20 04:40 Eos # 0.1 K/mm3 (0.0-0.4) 07/22/20 04:40 Baso # 0.0 K/mm3 (0.0-0.1) 07/22/20 04:40 Add Manual Diff Complete 07/21/20 08:45 Total Counted 100 07/21/20 08:45 Seg Neutrophils % 82.8 % (40.0-70.0) H 07/22/20 04:40 Seg Neuts % (Manual) 92.0 % (40.0-70.0) H 07/21/20 08:45 Band Neutrophils % 1.0 % 07/21/20 08:45 Lymphocytes % (Manual) 4.0 % (13.4-35.0) L 07/21/20 08:45 Reactive Lymphs % (Man) 0 % 07/21/20 08:45 Monocytes % (Manual) 3.0 % (0.0-7.3) 07/21/20 08:45 Eosinophils % (Manual) 0 % (0.0-4.3) 07/21/20 08:45 Basophils % (Manual) 0 % (0.0-1.8) 07/21/20 08:45 Metamyelocytes % 0 % 07/21/20 08:45 Myelocytes % 0 % 07/21/20 08:45 Promyelocytes % 0 % 07/21/20 08:45 Blast Cells % 0 % 07/21/20 08:45 Nucleated RBC % Not Reportable 07/21/20 08:45 Seg Neutrophils # 4.5 K/mm3 (1.8-7.7) 07/22/20 04:40 Seg Neutrophils # Man 12.5 K/mm3 (1.8-7.7) H 07/21/20 08:45 Band Neutrophils # 0.1 K/mm3 07/21/20 08:45 Lymphocytes # (Manual) 0.5 K/mm3 (1.2-5.4) L 07/21/20 08:45 Abs React Lymphs (Man) 0.0 K/mm3 07/21/20 08:45 Monocytes # (Manual) 0.4 K/mm3 (0.0-0.8) 07/21/20 08:45 Eosinophils # (Manual) 0.0 K/mm3 (0.0-0.4) 07/21/20 08:45 Basophils # (Manual) 0.0 K/mm3 (0.0-0.1) 07/21/20 08:45 Metamyelocytes # 0.0 K/mm3 07/21/20 08:45 Myelocytes # 0.0 K/mm3 07/21/20 08:45 Promyelocytes # 0.0 K/mm3 07/21/20 08:45 Blast Cells # 0.0 K/mm3 07/21/20 08:45 WBC Morphology Not Reportable 07/21/20 08:45 Hypersegmented Neuts Not Reportable 07/21/20 08:45 Hyposegmented Neuts Not Reportable 07/21/20 08:45 Hypogranular Neuts Not Reportable 07/21/20 08:45 Smudge Cells Not Reportable 07/21/20 08:45 Toxic Granulation Not Reportable 07/21/20 08:45 Toxic Vacuolation Not Reportable 07/21/20 08:45 Dohle Bodies Not Reportable 07/21/20 08:45 Pelger-Huet Anomaly Not Reportable 07/21/20 08:45 Michelle Rods Not Reportable 07/21/20 08:45 Platelet Estimate Consistent w auto 07/21/20 08:45 Clumped Platelets Not Reportable 07/21/20 08:45 Plt Clumps, EDTA Not Reportable 07/21/20 08:45 Large Platelets Not Reportable 07/21/20 08:45 Giant Platelets Not Reportable 07/21/20 08:45 Platelet Satelliting Not Reportable 07/21/20 08:45 Plt Morphology Comment Not Reportable 07/21/20 08:45 RBC Morphology Normal 07/21/20 08:45 Dimorphic RBCs Not Reportable 07/21/20 08:45 Polychromasia Not Reportable 07/21/20 08:45 Hypochromasia Not Reportable 07/21/20 08:45 Poikilocytosis Not Reportable 07/21/20 08:45 Anisocytosis Not Reportable 07/21/20 08:45 Microcytosis Not Reportable 07/21/20 08:45 Macrocytosis Not Reportable 07/21/20 08:45 Spherocytes Not Reportable 07/21/20 08:45 Pappenheimer Bodies Not Reportable 07/21/20 08:45 Sickle Cells Not Reportable 07/21/20 08:45 Target Cells Not Reportable 07/21/20 08:45 Tear Drop Cells Not Reportable 07/21/20 08:45 Ovalocytes Not Reportable 07/21/20 08:45 Helmet Cells Not Reportable 07/21/20 08:45 [place] Bodies Not Reportable 07/21/20 08:45 [place] Rings Not Reportable 07/21/20 08:45 [place]lee Cells Not Reportable 07/21/20 08:45 Bite Cells Not Reportable 07/21/20 08:45 Crenated Cell Not Reportable 07/21/20 08:45 Elliptocytes Not Reportable 07/21/20 08:45 Acanthocytes (Spur) Not Reportable 07/21/20 08:45 Rouleaux Not Reportable 07/21/20 08:45 Hemoglobin C Crystals Not Reportable 07/21/20 08:45 Schistocytes Not Reportable 07/21/20 08:45 Malaria parasites Not Reportable 07/21/20 08:45 Curt Bodies Not Reportable 07/21/20 08:45 Hem Pathologist Commnt No 07/21/20 08:45 Sodium 136 mmol/L (137-145) L 07/24/20 09:37 Potassium 4.7 mmol/L (3.6-5.0) 07/24/20 09:37 Chloride 103.5 mmol/L (98-107) 07/24/20 09:37 Carbon Dioxide 19 mmol/L (22-30) L 07/24/20 09:37 Anion Gap 18 mmol/L 07/24/20 09:37 BUN 24 mg/dL (7-17) H 07/24/20 09:37 Creatinine 1.1 mg/dL (0.6-1.2) 07/24/20 09:37 Estimated GFR 50 ml/min 07/24/20 09:37 BUN/Creatinine Ratio 22 % 07/24/20 09:37 Glucose 109 mg/dL (65-100) H 07/24/20 09:37 POC Glucose 106 (70-105) H 07/25/20 06:42 Calcium 8.7 mg/dL (8.4-10.2) 07/24/20 09:37 Total Bilirubin 0.50 mg/dL (0.1-1.2) 07/22/20 04:40 Direct Bilirubin < 0.2 mg/dL (0-0.2) 07/21/20 08:45 Indirect Bilirubin 0.5 mg/dL 07/21/20 08:45 AST 24 units/L (5-40) 07/22/20 04:40 ALT 17 units/L (7-56) 07/22/20 04:40 Alkaline Phosphatase 62 units/L (35-129) 07/22/20 04:40 Total Protein 6.0 g/dL (6.3-8.2) L 07/22/20 04:40 Albumin 3.7 g/dL (3.9-5) L 07/22/20 04:40 Albumin/Globulin Ratio 1.6 % 07/22/20 04:40 Lipase 15 units/L (13-60) 07/21/20 08:45 Urine Color [place] (Yellow) 07/21/20 Unknown Urine Turbidity Cloudy (Clear) 07/21/20 Unknown Urine pH 5.0 (5.0-7.0) 07/21/20 Unknown Ur Specific [place] 1.020 (1.003-1.030) 07/21/20 Unknown Urine Protein 30 mg/dl mg/dL (Negative) 07/21/20 Unknown Urine Glucose (UA) Neg mg/dL (Negative) 07/21/20 Unknown Urine Ketones Neg mg/dL (Negative) 07/21/20 Unknown Urine Blood Neg (Negative) 07/21/20 Unknown Urine Nitrite Neg (Negative) 07/21/20 Unknown Urine Bilirubin Neg (Negative) 07/21/20 Unknown Urine Urobilinogen < 2.0 mg/dL (<2.0) 07/21/20 Unknown Ur Leukocyte Esterase Lg (Negative) 07/21/20 Unknown Urine WBC (Auto) 10.0 /HPF (0.0-6.0) H 07/21/20 Unknown Urine RBC (Auto) 4.0 /HPF (0.0-6.0) 07/21/20 Unknown U Epithel Cells (Auto) 5.0 /HPF (0-13.0) 07/21/20 Unknown Urine Bacteria (Auto) 2+ /HPF (Negative) 07/21/20 Unknown Hyaline Casts 6 /LPF 07/21/20 Unknown Urine Mucus 1+ /HPF 07/21/20 Unknown Saldaña/IV: Voiding Method Toilet IV Catheter Type [Right INT / Saline Lock Forearm] IV Catheter Type [Left INT / Saline Lock Antecubital] Active Medications - Current Medications Current Medications: Generic Name Dose Route Start Last Admin Trade Name Freq PRN Reason Stop Dose Admin Acetaminophen 650 mg 07/21/20 22:46 Tylenol PO Q4H PRN Pain MILD(1-3)/Fever >100.5/MARIN Amlodipine Besylate 5 mg 07/26/20 10:00 Amlodipine PO DAILY VENKAT Citalopram Hydrobromide 40 mg 07/25/20 10:00 07/25/20 09:56 Celexa PO 40 mg QDAY VENKAT Administration Clonidine HCl 0.1 mg 07/22/20 10:00 07/22/20 12:09 Catapres-Tts Patch TD 0.1 mg We VENKAT Administration Dexamethasone 4 mg 07/22/20 10:00 07/25/20 09:56 Decadron IV 4 mg Q24H VENKAT Administration Famotidine 20 mg 07/21/20 23:00 07/25/20 09:56 Pepcid IV 20 mg QAM VENKAT Administration Heparin Sodium (Porcine) 5,000 unit 07/22/20 22:00 07/25/20 09:56 Heparin SUB-Q 5,000 unit Q12HR VENKAT Administration Hydrochlorothiazide 12.5 mg 07/26/20 10:00 Hctz PO QDAY [facility] Hydroxychloroquine Sulfate 200 mg 07/25/20 22:00 Plaquenil PO BID VENKAT Ceftriaxone Sodium 1 gm in 50 mls @ 100 mls/hr 07/22/20 10:00 07/25/20 10:09 Rocephin/Ns 1 Gm/50 Ml IV 100 mls/hr Q24HR VENKAT Administration Protocol Potassium Chloride/Dextrose/Sod Cl 20 meq in 1,000 mls @ 100 mls/hr 07/24/20 16:00 07/25/20 02:10 D5w/Ns W/Kcl 20meq IV 100 mls/hr DIRECT VENKAT Administration Insulin Human Regular 0 unit 07/22/20 14:00 07/25/20 06:32 Humulin R SUB-Q Not Given Q8H [facility] Protocol Ketorolac Tromethamine 15 mg 07/24/20 12:00 07/25/20 05:11 Toradol IV 07/29/20 11:59 15 mg Q6HR VENKAT Administration Levothyroxine Sodium 100 mcg 07/22/20 09:00 07/25/20 05:11 Synthroid IV 100 mcg DAILY@0600 VENKAT Administration Lisinopril 20 mg 07/26/20 10:00 Zestril PO QDAY VENKAT Morphine Sulfate 4 mg 07/21/20 14:32 07/24/20 09:27 Morphine IV 4 mg Q3H PRN Administration Pain , Severe (7-10) Ondansetron HCl 4 mg 07/21/20 22:46 07/23/20 21:06 Zofran IV 4 mg Q8H PRN Administration Nausea And Vomiting Sodium Chloride 10 ml 07/21/20 23:00 07/25/20 10:10 Sodium Chloride Flush Syringe 10 Ml IV 10 ml BID VENKAT Administration Sodium Chloride 10 ml 07/21/20 22:46 Sodium Chloride Flush Syringe 10 Ml IV PRN PRN LINE FLUSH Nutrition/Malnutrition Assess - Dietary Evaluation Nutrition/Malnutrition Findings: Nutrition Notes Start: 07/22/20 10:54 Freq: Status: Active Protocol: Document 07/24/20 10:06 ROBIN (Rec: 07/24/20 10:48 ROBIN [email or web address]) Co-Sign 07/24/20 10:06 Nutrition Notes Initial or Follow up Brief Note Subjective/Other Information F/U for diet advancement and Na levels. Pt remains NPO. Hyponatremia continues. Nutrition Intervention Follow-Up By: 07/27/20 Additional Comments F/U for diet advacement and Na levels
--- NOTE | 2020-07-25 15:34 | XRay Report ---
ABDOMEN 1 VIEW 3:20 PM INDICATION / CLINICAL INFORMATION: NGT placement. COMPARISON: 07/21/20. FINDINGS: TUBES / LINES: There is a new nasogastric tube with the tip overlying the distal stomach or duodenal bulb. BOWEL GAS PATTERN: Multiple dilated loops of small bowel are similar to the prior exam. There is a sm all amount of contrast in the right colon. FREE AIR / EXTRALUMINAL GAS: None seen. ADDITIONAL FINDINGS: No significant additional findings. IMPRESSION: 1. Nasogastric tube tip overlies the distal stomach or duodenal bulb. 2. Persistent small bowel obstruction. Signer Name: Rudy Tarango MD Signed: 07/25/2020 3:29 PM Workstation Name: [id number]
[2020-07-25] MEDS: HYDROXYCHLOROQUINE 200 MG TAB PO SCH (21:31)
[2020-07-26] MEDS: KETOROLAC 30 MG/1 ML INJ IV SCH ×4 (00:18→17:57)
[2020-07-26] MEDS: D5NS W/KCL 20 MEQ 20 MEQ/1,000 ML BAG IV SCH ×2 (00:37→22:10)
[2020-07-26] MEDS: LEVOTHYROXINE 100 MCG INJ IV SCH ×2 (05:57→06:58)
[2020-07-26] MEDS: INSULIN REGULAR, HUMAN 100 UNIT/ML 3ML VIAL SUB-Q SCH ×2 (06:09→14:27)
[2020-07-26 07:22] LABS: BUN/Creatinine Ratio 18; Blood Urea Nitrogen 16 mg/dL (7-17); Calcium 8.4 mg/dL (8.4-10.2); Hemolysis Index 2
[2020-07-26] MEDS ORDERED: POTASSIUM PHOSPHATE 40 MMOL in SODIUM CHLORIDE 0.9% 500 ML 500 ML IV ONE (08:38)
[2020-07-26] MEDS ORDERED: MAGNESIUM SULFATE 4 GM/100 ML BAG IV ONE (08:38)
--- NOTE | 2020-07-26 08:43 | Progress Note ---
Assessment and Plan Assessment and plan: --Hypomagnesemia;Mg 1.3 Mag sulfate 4 g IV, monitor levels --Hypophosphatemia; Phos 1.6 IV K-Phos 40 mmol, monitor phosphate levels --Incarcerated umbilical hernia with obstruction Patient did not have flatus, mild pain s/p robotic assisted lap reduction of incarcerated umbilical hernia, partial omentectomy open small bowel resection open primary repair of umbilical hernia open partial resection of hernia sac. Postop management per surgery N.p.o., IV fluids, pain medications, supportive care -- MARCELO (acute kidney injury); vasomotor nephropathy/ resolved Continue IV fluids, monitor renal function Avoid nephrotoxins -- Hypothyroidism (acquired) Continue IV Synthroid . -- Hypertension Well-controlled , continue Catapres patch PRN medications -- Lupus (systemic lupus erythematosus) Continue IV Decadron --Sepsis due to UTI: Urine cultures positive for Klebsiella pneumonia Sensitive to Rocephin. Consider ID evaluation if needed Leukocytosis, tachycardia, positive urine cultures -- DVT prophylaxis On heparin and GI prophylaxis Brief History: 65yo F with hyperlipidemia, hypothyroidism, other (Lupus, Sjogrens), ventral hernia for 30 years presents with relatively recent onset of abdominal pain, swelling, nausea, vomiting for the past 2 to 3 days. Evaluation emergency department revealed incarcerated umbilical hernia with small bowel obstruction. General surgery evaluated the patient, underwent surgical procedure, postop care per surgery 07/22: cont iv fluid, iv abx, pain Mx as needed. NPO with NG suction.plan for surgery tomorrow. 07/23; patient is scheduled for hernia repair today 07/24; status post surgery, postop management per surgery, UTI; urine positive for Klebsiella pneumonia, ID consult if needed 07/25; patient did not have flatus, continue n.p.o. status, IV fluids , pain medications and IV antibiotics supportive care 07/26; patient has severe hypomagnesemia and hypophosphatemia, replenish with IV mag sulfate and IV K-Phos, follow electrolytes History Interval history: I have seen and examined the patient at the bedside this morning Patient's chart and medications reviewed Patient has severe hypo-Caryn anemia and hypophosphatemia Will replenish per protocols Patient feels slightly better Patient had flatus no bowel movement Denies nausea vomiting Vital signs noted Hospitalist Physical - Constitutional Vitals: Temp Pulse Resp BP Pulse Ox 98.2 F 58 L 18 136/64 98 07/26/20 07:00 07/26/20 07:00 07/26/20 07:00 07/26/20 07:00 07/26/20 07:00 General appearance: Present: no acute distress, well-nourished - EENT Eyes: Present: PERRL, EOM intact - Neck Neck: Present: supple, normal ROM - Respiratory Respiratory effort: normal Respiratory: bilateral: diminished, negative: rales, rhonchi, wheezing - Cardiovascular Rhythm: regular Heart Sounds: Present: S1 & S2 - Extremities Extremities: no ischemia, No edema - Abdominal General gastrointestinal: soft, non-distended, other (Surgical dressing in place) - Integumentary Integumentary: Present: clear, warm - Psychiatric Psychiatric: appropriate mood/affect, cooperative - Neurologic Neurologic: moves all extremities Results - Labs CBC & Chem 7: 07/24/20 09:37 07/26/20 06:07 Labs: Laboratory Last Values WBC 4.8 K/mm3 (4.5-11.0) 07/24/20 09:37 RBC 3.18 M/mm3 (3.65-5.03) L 07/24/20 09:37 Hgb 9.7 gm/dl (10.1-14.3) L 07/24/20 09:37 Hct 29.4 % (30.3-42.9) L 07/24/20 09:37 MCV 92 fl (79-97) 07/24/20 09:37 MCH 31 pg (28-32) 07/24/20 09:37 MCHC 33 % (30-34) 07/24/20 09:37 RDW 15.0 % (13.2-15.2) 07/24/20 09:37 Plt Count 237 K/mm3 (140-440) 07/24/20 09:37 Lymph % (Auto) 7.5 % (13.4-35.0) L 07/22/20 04:40 [place] % (Auto) 8.1 % (0.0-7.3) H 07/22/20 04:40 Eos % (Auto) 1.5 % (0.0-4.3) 07/22/20 04:40 Baso % (Auto) 0.1 % (0.0-1.8) 07/22/20 04:40 Lymph # 0.4 K/mm3 (1.2-5.4) L 07/22/20 04:40 [place] # 0.4 K/mm3 (0.0-0.8) 07/22/20 04:40 Eos # 0.1 K/mm3 (0.0-0.4) 07/22/20 04:40 Baso # 0.0 K/mm3 (0.0-0.1) 07/22/20 04:40 Add Manual Diff Complete 07/21/20 08:45 Total Counted 100 07/21/20 08:45 Seg Neutrophils % 82.8 % (40.0-70.0) H 07/22/20 04:40 Seg Neuts % (Manual) 92.0 % (40.0-70.0) H 07/21/20 08:45 Band Neutrophils % 1.0 % 07/21/20 08:45 Lymphocytes % (Manual) 4.0 % (13.4-35.0) L 07/21/20 08:45 Reactive Lymphs % (Man) 0 % 07/21/20 08:45 Monocytes % (Manual) 3.0 % (0.0-7.3) 07/21/20 08:45 Eosinophils % (Manual) 0 % (0.0-4.3) 07/21/20 08:45 Basophils % (Manual) 0 % (0.0-1.8) 07/21/20 08:45 Metamyelocytes % 0 % 07/21/20 08:45 Myelocytes % 0 % 07/21/20 08:45 Promyelocytes % 0 % 07/21/20 08:45 Blast Cells % 0 % 07/21/20 08:45 Nucleated RBC % Not Reportable 07/21/20 08:45 Seg Neutrophils # 4.5 K/mm3 (1.8-7.7) 07/22/20 04:40 Seg Neutrophils # Man 12.5 K/mm3 (1.8-7.7) H 07/21/20 08:45 Band Neutrophils # 0.1 K/mm3 07/21/20 08:45 Lymphocytes # (Manual) 0.5 K/mm3 (1.2-5.4) L 07/21/20 08:45 Abs React Lymphs (Man) 0.0 K/mm3 07/21/20 08:45 Monocytes # (Manual) 0.4 K/mm3 (0.0-0.8) 07/21/20 08:45 Eosinophils # (Manual) 0.0 K/mm3 (0.0-0.4) 07/21/20 08:45 Basophils # (Manual) 0.0 K/mm3 (0.0-0.1) 07/21/20 08:45 Metamyelocytes # 0.0 K/mm3 07/21/20 08:45 Myelocytes # 0.0 K/mm3 07/21/20 08:45 Promyelocytes # 0.0 K/mm3 07/21/20 08:45 Blast Cells # 0.0 K/mm3 07/21/20 08:45 WBC Morphology Not Reportable 07/21/20 08:45 Hypersegmented Neuts Not Reportable 07/21/20 08:45 Hyposegmented Neuts Not Reportable 07/21/20 08:45 Hypogranular Neuts Not Reportable 07/21/20 08:45 Smudge Cells Not Reportable 07/21/20 08:45 Toxic Granulation Not Reportable 07/21/20 08:45 Toxic Vacuolation Not Reportable 07/21/20 08:45 Dohle Bodies Not Reportable 07/21/20 08:45 Pelger-Huet Anomaly Not Reportable 07/21/20 08:45 Michelle Rods Not Reportable 07/21/20 08:45 Platelet Estimate Consistent w auto 07/21/20 08:45 Clumped Platelets Not Reportable 07/21/20 08:45 Plt Clumps, EDTA Not Reportable 07/21/20 08:45 Large Platelets Not Reportable 07/21/20 08:45 Giant Platelets Not Reportable 07/21/20 08:45 Platelet Satelliting Not Reportable 07/21/20 08:45 Plt Morphology Comment Not Reportable 07/21/20 08:45 RBC Morphology Normal 07/21/20 08:45 Dimorphic RBCs Not Reportable 07/21/20 08:45 Polychromasia Not Reportable 07/21/20 08:45 Hypochromasia Not Reportable 07/21/20 08:45 Poikilocytosis Not Reportable 07/21/20 08:45 Anisocytosis Not Reportable 07/21/20 08:45 Microcytosis Not Reportable 07/21/20 08:45 Macrocytosis Not Reportable 07/21/20 08:45 Spherocytes Not Reportable 07/21/20 08:45 Pappenheimer Bodies Not Reportable 07/21/20 08:45 Sickle Cells Not Reportable 07/21/20 08:45 Target Cells Not Reportable 07/21/20 08:45 Tear Drop Cells Not Reportable 07/21/20 08:45 Ovalocytes Not Reportable 07/21/20 08:45 Helmet Cells Not Reportable 07/21/20 08:45 [place] Bodies Not Reportable 07/21/20 08:45 [place] Rings Not Reportable 07/21/20 08:45 Haylee Cells Not Reportable 07/21/20 08:45 Bite Cells Not Reportable 07/21/20 08:45 Crenated Cell Not Reportable 07/21/20 08:45 Elliptocytes Not Reportable 07/21/20 08:45 Acanthocytes (Spur) Not Reportable 07/21/20 08:45 Rouleaux Not Reportable 07/21/20 08:45 Hemoglobin C Crystals Not Reportable 07/21/20 08:45 Schistocytes Not Reportable 07/21/20 08:45 Malaria parasites Not Reportable 07/21/20 08:45 Curt Bodies Not Reportable 07/21/20 08:45 Hem Pathologist Commnt No 07/21/20 08:45 Sodium 135 mmol/L (137-145) L 07/26/20 06:07 Potassium 4.3 mmol/L (3.6-5.0) 07/26/20 06:07 Chloride 105.1 mmol/L (98-107) 07/26/20 06:07 Carbon Dioxide 19 mmol/L (22-30) L 07/26/20 06:07 Anion Gap 15 mmol/L 07/26/20 06:07 BUN 16 mg/dL (7-17) 07/26/20 06:07 Creatinine 0.9 mg/dL (0.6-1.2) 07/26/20 06:07 Estimated GFR > 60 ml/min 07/26/20 06:07 BUN/Creatinine Ratio 18 % 07/26/20 06:07 Glucose 106 mg/dL (65-100) H 07/26/20 06:07 POC Glucose 110 (70-105) H 07/26/20 06:18 Calcium 8.4 mg/dL (8.4-10.2) 07/26/20 06:07 Phosphorus 1.60 mg/dL (2.5-4.5) L 07/26/20 06:07 Magnesium 1.30 mg/dL (1.7-2.3) L 07/26/20 06:07 Total Bilirubin 0.50 mg/dL (0.1-1.2) 07/22/20 04:40 Direct Bilirubin < 0.2 mg/dL (0-0.2) 07/21/20 08:45 Indirect Bilirubin 0.5 mg/dL 07/21/20 08:45 AST 24 units/L (5-40) 07/22/20 04:40 ALT 17 units/L (7-56) 07/22/20 04:40 Alkaline Phosphatase 62 units/L (35-129) 07/22/20 04:40 Total Protein 6.0 g/dL (6.3-8.2) L 07/22/20 04:40 Albumin 3.7 g/dL (3.9-5) L 07/22/20 04:40 Albumin/Globulin Ratio 1.6 % 07/22/20 04:40 Lipase 15 units/L (13-60) 07/21/20 08:45 Urine Color [place] (Yellow) 07/21/20 Unknown Urine Turbidity Cloudy (Clear) 07/21/20 Unknown Urine pH 5.0 (5.0-7.0) 07/21/20 Unknown Ur Specific [place] 1.020 (1.003-1.030) 07/21/20 Unknown Urine Protein 30 mg/dl mg/dL (Negative) 07/21/20 Unknown Urine Glucose (UA) Neg mg/dL (Negative) 07/21/20 Unknown Urine Ketones Neg mg/dL (Negative) 07/21/20 Unknown Urine Blood Neg (Negative) 07/21/20 Unknown Urine Nitrite Neg (Negative) 07/21/20 Unknown Urine Bilirubin Neg (Negative) 07/21/20 Unknown Urine Urobilinogen < 2.0 mg/dL (<2.0) 07/21/20 Unknown Ur Leukocyte Esterase Lg (Negative) 07/21/20 Unknown Urine WBC (Auto) 10.0 /HPF (0.0-6.0) H 07/21/20 Unknown Urine RBC (Auto) 4.0 /HPF (0.0-6.0) 07/21/20 Unknown U Epithel Cells (Auto) 5.0 /HPF (0-13.0) 07/21/20 Unknown Urine Bacteria (Auto) 2+ /HPF (Negative) 07/21/20 Unknown Hyaline Casts 6 /LPF 07/21/20 Unknown Urine Mucus 1+ /HPF 07/21/20 Unknown Saldaña/IV: Voiding Method Toilet IV Catheter Type [Right INT / Saline Lock Forearm] IV Catheter Type [Left INT / Saline Lock Antecubital] Active Medications - Current Medications Current Medications: Generic Name Dose Route Start Last Admin Trade Name Freq PRN Reason Stop Dose Admin Acetaminophen 650 mg 07/21/20 22:46 Tylenol PO Q4H PRN Pain MILD(1-3)/Fever >100.5/MARIN Amlodipine Besylate 5 mg 07/26/20 10:00 Amlodipine PO DAILY VENKAT Citalopram Hydrobromide 40 mg 07/25/20 10:00 07/25/20 09:56 Celexa PO 40 mg QDAY VENKAT Administration Clonidine HCl 0.1 mg 07/22/20 10:00 07/22/20 12:09 Catapres-Tts Patch TD 0.1 mg We VENKAT Administration Dexamethasone 4 mg 07/22/20 10:00 07/25/20 09:56 Decadron IV 4 mg Q24H VENKAT Administration Famotidine 20 mg 07/21/20 23:00 07/25/20 09:56 Pepcid IV 20 mg QAM VENKAT Administration Heparin Sodium (Porcine) 5,000 unit 07/22/20 22:00 07/25/20 21:32 Heparin SUB-Q 5,000 unit Q12HR VENKAT Administration Hydrochlorothiazide 12.5 mg 07/26/20 10:00 Hctz PO QDAY VENKAT Hydroxychloroquine Sulfate 200 mg 07/25/20 22:00 07/25/20 21:31 Plaquenil PO Not Given BID VENKAT Ceftriaxone Sodium 1 gm in 50 mls @ 100 mls/hr 07/22/20 10:00 07/25/20 10:09 Rocephin/Ns 1 Gm/50 Ml IV 100 mls/hr Q24HR VENKAT Administration Protocol Potassium Chloride/Dextrose/Sod Cl 20 meq in 1,000 mls @ 100 mls/hr 07/24/20 16:00 07/26/20 00:37 D5w/Ns W/Kcl 20meq IV 100 mls/hr DIRECT VENKAT Administration Magnesium Sulfate 4 gm in 100 mls @ 25 mls/hr 07/26/20 08:38 Magnesium Sulfate 4gm/100ml IV 07/26/20 12:37 ONCE ONE Potassium Phosphate 40 mmol/ 513.3333 mls @ 83 mls/hr 07/26/20 08:38 Sodium Chloride IV 07/26/20 14:49 ONCE ONE Insulin Human Regular 0 unit 07/22/20 14:00 07/26/20 06:09 Humulin R SUB-Q Not Given Q8H [facility] Protocol Ketorolac Tromethamine 15 mg 07/24/20 12:00 07/26/20 05:20 Toradol IV 07/29/20 11:59 15 mg Q6HR VENKAT Administration Levothyroxine Sodium 100 mcg 07/22/20 09:00 07/26/20 06:58 Synthroid IV 100 mcg DAILY@0600 VENKAT Administration Lisinopril 20 mg 07/26/20 10:00 Zestril PO QDAY VENKAT Morphine Sulfate 4 mg 07/21/20 14:32 07/24/20 09:27 Morphine IV 4 mg Q3H PRN Administration Pain , Severe (7-10) Ondansetron HCl 4 mg 07/21/20 22:46 07/23/20 21:06 Zofran IV 4 mg Q8H PRN Administration Nausea And Vomiting Sodium Chloride 10 ml 07/21/20 23:00 07/25/20 21:34 Sodium Chloride Flush Syringe 10 Ml IV 10 ml BID VENKAT Administration Sodium Chloride 10 ml 07/21/20 22:46 Sodium Chloride Flush Syringe 10 Ml IV PRN PRN LINE FLUSH Nutrition/Malnutrition Assess - Dietary Evaluation Nutrition/Malnutrition Findings: Nutrition Notes Start: 07/22/20 10:54 Freq: Status: Active Protocol: Document 07/24/20 10:06 ROBIN (Rec: 07/24/20 10:48 ROBIN [id number]) Co-Sign 07/24/20 10:06 LM Nutrition Notes Initial or Follow up Brief Note Subjective/Other Information F/U for diet advancement and Na levels. Pt remains NPO. Hyponatremia continues. Nutrition Intervention Follow-Up By: 07/27/20 Additional Comments F/U for diet advacement and Na levels
[2020-07-26] MEDS: LISINOPRIL 20 MG TAB PO SCH (09:09)
[2020-07-26] MEDS: amLODIPine 5 MG TAB PO SCH (09:09)
[2020-07-26] MEDS: CITALOPRAM 20 MG TAB PO SCH (09:09)
[2020-07-26] MEDS: HYDROXYCHLOROQUINE 200 MG TAB PO SCH ×2 (09:09→21:38)
[2020-07-26] MEDS: hydroCHLOROthiazide 12.5 MG CAP PO SCH (09:09)
[2020-07-26] MEDS: HEPARIN 5,000 UNIT/1 ML VIAL SUB-Q SCH ×2 (09:11→21:35)
[2020-07-26] MEDS: dexAMETHasone 4 MG/ML VIAL IV SCH (09:11)
[2020-07-26] MEDS: FAMOTIDINE 20 MG/2 ML INJ IV SCH (09:11)
[2020-07-26] MEDS: cefTRIAXone/NS 1 GM/50 ML 1 GM/50 ML BAG IV SCH (09:18)
[2020-07-26] MEDS ORDERED: PREDNISONE 2 MG PO SCH (10:00)
[2020-07-26] MEDS ORDERED: LISINOPRIL PO SCH (10:00)
[2020-07-26] MEDS ORDERED: HYDROCHLOROTHIAZIDE PO SCH (10:00)
--- NOTE | 2020-07-26 10:58 | Progress Note ---
Assessment and Plan - Patient Problems (1) Ventral hernia with bowel obstruction Current Visit: Yes Status: Acute Plan to address problem: Pt stable. s/p robotic assisted lap reduction of incarcerated umbilical hernia. lap partial omentectomy, open small bowel resection, open primary repair of umbilical hernia (07/23) - POD#3. Patient appears to be doing well. Resumption of bowel function last night. Will advance to clear liquid diet today but leave NG tube in based on yesterday's events. The nurses been instructed and if the patient does well today, the NG tube may be removed this evening. If she does well with clears today, we will advance her to a soft diet tomorrow. As soon as patient is able to be advanced in her diet and she tolerates it, she will be ready for discharge. Please call with any questions Subjective Date of service: 07/26/20 Patient Reports: Positive: no new complaints, feels better, flatus. Negative: nausea, vomiting Objective Vital Signs - 12hr 07/26/20 07/26/20 07/26/20 00:06 05:08 07:00 Temperature 97.7 F 98.9 F 98.2 F Pulse Rate 63 62 58 L Respiratory 18 18 18 Rate Blood Pressure 167/68 138/56 Blood Pressure 136/64 [Left] O2 Sat by Pulse 98 96 98 Oximetry - General physical appearance no distress, no pain, other (looks better) - Respiratory normal expansion, normal respiratory effort - Abdomen soft, not distended, surgical scars (C/D/I - mild bruising noted around some of the incisions. ) - Integumentary no rash, no growths - Psychiatric oriented to time, oriented to person, oriented to place, speech is normal, memory intact - Labs 07/24/20 09:37 07/26/20 06:07 Diabetes panel 07/26/20 Range/Units 06:07 Sodium 135 L (137-145) mmol/L Potassium 4.3 (3.6-5.0) mmol/L Chloride 105.1 (98-107) mmol/L Carbon Dioxide 19 L (22-30) mmol/L BUN 16 (7-17) mg/dL Creatinine 0.9 (0.6-1.2) mg/dL Glucose 106 H (65-100) mg/dL Calcium 8.4 (8.4-10.2) mg/dL Calcium panel 07/26/20 Range/Units 06:07 Calcium 8.4 (8.4-10.2) mg/dL Phosphorus 1.60 L (2.5-4.5) mg/dL Pituitary panel 07/26/20 Range/Units 06:07 Sodium 135 L (137-145) mmol/L Potassium 4.3 (3.6-5.0) mmol/L Chloride 105.1 (98-107) mmol/L Carbon Dioxide 19 L (22-30) mmol/L BUN 16 (7-17) mg/dL Creatinine 0.9 (0.6-1.2) mg/dL Glucose 106 H (65-100) mg/dL Calcium 8.4 (8.4-10.2) mg/dL Adrenal panel 07/26/20 Range/Units 06:07 Sodium 135 L (137-145) mmol/L Potassium 4.3 (3.6-5.0) mmol/L Chloride 105.1 (98-107) mmol/L Carbon Dioxide 19 L (22-30) mmol/L BUN 16 (7-17) mg/dL Creatinine 0.9 (0.6-1.2) mg/dL Glucose 106 H (65-100) mg/dL Calcium 8.4 (8.4-10.2) mg/dL
[2020-07-27] MEDS: KETOROLAC 30 MG/1 ML INJ IV SCH ×3 (00:09→11:49)
[2020-07-27] MEDS: INSULIN REGULAR, HUMAN 100 UNIT/ML 3ML VIAL SUB-Q SCH ×2 (05:52→10:39)
[2020-07-27] MEDS: LEVOTHYROXINE 100 MCG INJ IV SCH (06:06)
[2020-07-27 08:06] VITALS: BP 113/58
--- NOTE | 2020-07-27 08:42 | Progress Note ---
Assessment and Plan - Patient Problems (1) Ventral hernia with bowel obstruction Current Visit: Yes Status: Acute Plan to address problem: Pt stable. s/p robotic assisted lap reduction of incarcerated umbilical hernia. lap partial omentectomy, open small bowel resection, open primary repair of umbilical hernia (07/23) - POD#4. Patient appears to be doing well. Continued bowel function. -Ok to d/c home - may shower. Pat dry wounds. - f/u in 2 weeks - diet as tolerated Please call with any questions Subjective Date of service: 07/27/20 Patient Reports: Positive: no new complaints, feels better, pain is less, tolerating liquids well, flatus. Negative: nausea, vomiting Objective Vital Signs - 12hr 07/26/20 07/27/20 07/27/20 22:46 05:39 07:38 Temperature 97.9 F 97.9 F Pulse Rate 58 L 60 64 Respiratory 18 18 Rate Blood Pressure 118/53 132/58 113/58 O2 Sat by Pulse 97 97 98 Oximetry - General physical appearance no distress, no pain, other (looks good) - Eyes normal occular movement - Respiratory normal expansion, normal respiratory effort - Abdomen soft, not distended - Psychiatric oriented to time, oriented to person, oriented to place, speech is normal, memory intact - Labs 07/24/20 09:37 07/26/20 06:07
[2020-07-27] MEDS: cefTRIAXone/NS 1 GM/50 ML 1 GM/50 ML BAG IV SCH (09:12)
[2020-07-27] MEDS: amLODIPine 5 MG TAB PO SCH (09:13)
[2020-07-27] MEDS: HEPARIN 5,000 UNIT/1 ML VIAL SUB-Q SCH (09:13)
[2020-07-27] MEDS: hydroCHLOROthiazide 12.5 MG CAP PO SCH (09:13)
[2020-07-27] MEDS: CITALOPRAM 20 MG TAB PO SCH (09:13)
[2020-07-27] MEDS: dexAMETHasone 4 MG/ML VIAL IV SCH (09:13)
[2020-07-27] MEDS: LISINOPRIL 20 MG TAB PO SCH (09:14)
[2020-07-27] MEDS: FAMOTIDINE 20 MG/2 ML INJ IV SCH (09:14)
[2020-07-27] MEDS: HYDROXYCHLOROQUINE 200 MG TAB PO SCH (09:14)
[2020-07-27] MEDS ORDERED: SODIUM CHLORIDE 0.9% 500 ML 500 ML ONE (09:35)
[2020-07-27] MEDS ORDERED: POTASSIUM CHLORIDE 20 MEQ in D5W/0.9% NACL 1,000 ML IV SCH (10:00)
[2020-07-27] MEDS ORDERED: SODIUM CHLORIDE 0.9% 500 ML IVPB IV ONE (12:46)
--- NOTE | 2020-07-27 13:24 | Discharge Summary ---
Providers - Providers Date of Admission: 07/22/20 07:28 Date of discharge: 07/27/20 Attending physician: GUTIERREZ COLEMAN 07/21/20 11:12 Consult to Physician [CONS] Routine Comment: Consulting Provider: ISAMAR GRANT Physician Instructions: Reason For Exam: Ventral Hernia with SBO Primary care physician: EMILE NIXON Hospitalization Condition: Stable Disposition: DC-01 TO HOME OR SELFCARE Time spent for discharge: 32 min Core Measure Documentation - Core Measures Any of the following diagnoses?: none Exam - Constitutional Vitals: Temp Pulse Resp BP Pulse Ox 97.9 F 64 18 113/58 98 07/27/20 07:38 07/27/20 07:38 07/27/20 07:38 07/27/20 07:38 07/27/20 07:38 General appearance: Present: no acute distress, well-nourished - EENT Eyes: Present: PERRL, EOM intact - Neck Neck: Present: supple, normal ROM - Respiratory Respiratory effort: normal Respiratory: bilateral: diminished, negative: rales, rhonchi, wheezing - Cardiovascular Rhythm: regular Heart Sounds: Present: S1 & S2 - Extremities Extremities: no ischemia, No edema - Abdominal General gastrointestinal: Present: soft, non-tender, normal bowel sounds - Integumentary Integumentary: Present: clear, warm - Musculoskeletal Musculoskeletal: strength equal bilaterally - Psychiatric Psychiatric: appropriate mood/affect, cooperative - Neurologic Neurologic: moves all extremities Plan Activity: advance as tolerated Diet: other Additional Instructions: Surgery cleared for discharge. - may shower. Pat dry wounds. - f/u in 2 weeks. - diet as tolerated. If you have worsening symptoms contact MD or go to emergency room as needed Follow up with: EMILE NIXON MD [Primary Care Provider] - 3-5 Days ISAMAR GRNAT MD [Staff Physician] - 14 Days Prescriptions: Ketorolac [Toradol] 10 mg PO Q6H PRN #20 tablet PRN Reason: Pain
== END 2020-07-27 15:30 | disposition home health service (06) | DRG 853 ==
LOC: ED 08:17 → 3B-SURG 11:25 → OBSVTOIN 07-22 07:28
PROVIDERS: ADMIT Internal Medicine; ATTEND Internal Medicine
PROC: 0DB80ZZ Excision of Small Intestine, Open Approach (ICD-10-PCS; principal; 2020-07-23)
PROC: 0DBU0ZZ Excision of Omentum, Open Approach (ICD-10-PCS; 2020-07-23)
PROC: 0WQF0ZZ Repair Abdominal Wall, Open Approach (ICD-10-PCS; 2020-07-23)
PROC: 0WQF4ZZ Repair Abdominal Wall, Percutaneous Endoscopic Approach (ICD-10-PCS; 2020-07-23)
PROC: 8E0W4CZ Robotic Assisted Procedure of Trunk Region, Percutaneous Endoscopic Approach (ICD-10-PCS; 2020-07-23)
DX: A41.9 Sepsis, unspecified organism (principal); N17.0 Acute kidney failure with tubular necrosis; K43.6 Other and unspecified ventral hernia with obstruction, without gangrene; K56.609 Unspecified intestinal obstruction, unspecified as to partial versus complete obstruction; N39.0 Urinary tract infection, site not specified; E87.1 Hypo-osmolality and hyponatremia; N17.9 Acute kidney failure, unspecified; K42.0 Umbilical hernia with obstruction, without gangrene; I10 Essential (primary) hypertension; E03.9 Hypothyroidism, unspecified; E78.00 Pure hypercholesterolemia, unspecified; E78.5 Hyperlipidemia, unspecified; E83.42 Hypomagnesemia; E83.39 Other disorders of phosphorus metabolism; Z88.2 Allergy status to sulfonamides
CPT/HCPCS: 36415; 74018; 74019; 74176; 80048; 80053; 80076; 81001; 82962; 83690; 83735; 84100; 85007; 85025; 85027; 87076; 87086; 87186; 88302; 88305; 88307; 96365; 96372; 96375; G0378; J0330; J0696; J1100; J1170; J1644; J1815; J1885; J2270; J2370; J2405; J2704; J2710; J2765; J3010; J3475; J3480; J7030; J7040; J7042